=== PATIENT | male | born 1945 | race Caucasian/White ===

== ENCOUNTER 2017-06-21 12:24 | Inpatient (IN) ==
[2017-06-21] MEDS ORDERED: ASPIRIN 325 MG TABLET PO STA (13:08)
[2017-06-21] MEDS ORDERED: ONDANSETRON 4 MG/2 ML VIAL IV STA (13:08)
[2017-06-21] MEDS ORDERED: FUROSEMIDE 100 MG/10 ML VIAL IV STA (13:08)
[2017-06-21] MEDS ORDERED: ALBUTEROL 2.5 MG/3 ML NEB RESP TX SCH (13:30)
[2017-06-21] MEDS ORDERED: FUROSEMIDE 20 MG/2 ML VIAL ONE (13:31)
[2017-06-21] MEDS ORDERED: FUROSEMIDE 40 MG/4 ML VIAL ONE (13:31)
[2017-06-21] MEDS ORDERED: ONDANSETRON 4 MG/2 ML VIAL ONE (13:31)
[2017-06-21] MEDS ORDERED: ASPIRIN CHEW 81 MG TABLET PO ONE (13:31)
[2017-06-21 13:32] LABS: Basophils % 0.3 % (0.0-0.8); Eosinophils # 0.4 10*3/uL (0.0-0.87); Eosinophils % 3.8 % (0.00-10.9); Hematocrit 36.8 VOL% (42.0-52.0); Hemoglobin 12.5 GM/DL (14.0-18.0); Immature Granulocytes Absolute 0.11 #; Lymphocytes % 9.3 % (21.2-54.2); Mean Corpuscular Hemoglobin 30 PG (27-34); Mean Platelet Volume 10.3 FL (9.6-12.0); Monocytes # 0.8 10*3/uL (0.11-0.8); Monocytes % 7.5 % (1.7-12.7); Neutrophils # 8.2 10*3/uL (1.4-7.4); Neutrophils % 78.1 % (38.7-73.9); Platelet Count 235 T/CUMM (130-400); Red Blood Count 4.23 MC/CUMM (3.8-5.5); Red Cell Distribution Width 14.7 % (9.3-17.3); White Blood Count 10.6 T/CUMM (4-12)
[2017-06-21 13:40] LABS: PT Patient Result 10.2 SECS
[2017-06-21 13:57] LABS: Albumin 3.6 G/DL (3.4-5.0); Bilirubin,Total 0.8 MG/DL (0.2-1.0); Calcium 8.4 MG/DL (8.5-10.1); Magnesium 2.2 MG/DL (1.8-2.4); Osmolality,Calculated 278.8 MOS/KG (273-304); Potassium 3.6 MMOL/L (3.5-5.1); Total Protein 7.1 G/DL (6.4-8.3); Troponin I Only 0.019 NG/ML (0.00-0.045)
[2017-06-21 15:04] LABS: Apearance,Urine CLEAR (Clear); Bilirubin,Urine Negative (Negative); Blood, Urine Negative (Negative); Glucose,Urine (UA) Negative (Negative); Hyaline Casts,Urine 2 /LPF (0-3); Ketones,Urine Negative (Negative); Mucus,Urine Occasional /LPF (Occasional); Nitrite,Urine Negative (Negative); Protein,Urine Negative; RBC,Urine 1 /HPF (0-4); Urine Color Straw (Yellow); Urine Specific Gravity 1.005 (1.001-1.035); Urine Urobilinogen < 2.0 EU/DL (0.2-1.0); WBC,Urine <1 /HPF (0-6)
[2017-06-21] MEDS ORDERED: LACTULOSE 20 GM/30 ML UDCUP PO PRN (15:38)
[2017-06-21] MEDS ORDERED: ACETAMINOPHEN 325 MG TABLET PO PRN (15:38)
[2017-06-21] MEDS ORDERED: ONDANSETRON 4 MG/2 ML VIAL IV PRN (15:38)
[2017-06-21] MEDS: FUROSEMIDE 40 MG/4 ML VIAL IV SCH ×2 (18:53→19:08)
[2017-06-21] MEDS: ENOXAPARIN 30 MG/0.3 ML SYRINGE SUBCUT SCH (18:59)
[2017-06-21] MEDS: POTASSIUM CHLORIDE 20 MEQ TABLET PO SCH (22:08)
[2017-06-21] MEDS: INSULIN REGULAR 100 UNIT/ML SUBCUT SCH (22:08)
[2017-06-21] MEDS: ATORVASTATIN 40 MG TABLET PO SCH (22:08)
[2017-06-21] MEDS: CEFTAROLINE 600 MG in SODIUM CHLORIDE 0.9% 50 ML IV SCH (23:42)
[2017-06-22 05:59] LABS: Basophils % 0.3 % (0.0-0.8); Eosinophils # 0.5 10*3/uL (0.0-0.87); Eosinophils % 4.9 % (0.00-10.9); Hematocrit 34.6 VOL% (42.0-52.0); Hemoglobin 11.7 GM/DL (14.0-18.0); Immature Granulocytes % 1.2 %; Immature Granulocytes Absolute 0.12 #; Lymphocytes # 1.3 10*3/uL (1.4-4.0); Lymphocytes % 12.5 % (21.2-54.2); Mean Corpuscular HGB Conc 33.8 GM/DL (32-36); Mean Corpuscular Hemoglobin 29 PG (27-34); Mean Corpuscular Volume 86.9 FL (87-102); Mean Platelet Volume 10.8 FL (9.6-12.0); Monocytes # 0.9 10*3/uL (0.11-0.8); Monocytes % 8.8 % (1.7-12.7); Neutrophils # 7.5 10*3/uL (1.4-7.4); Neutrophils % 72.3 % (38.7-73.9); Platelet Count 238 T/CUMM (130-400); Red Blood Count 3.98 MC/CUMM (3.8-5.5); Red Cell Distribution Width 14.6 % (9.3-17.3); White Blood Count 10.3 T/CUMM (4-12)
[2017-06-22 06:35] LABS: Albumin 3.4 G/DL (3.4-5.0); Bilirubin,Total 1.1 MG/DL (0.2-1.0); Calcium 8.7 MG/DL (8.5-10.1); Magnesium 2.4 MG/DL (1.8-2.4); Osmolality,Calculated 281.7 MOS/KG (273-304); Potassium 3.6 MMOL/L (3.5-5.1); Total Protein 6.9 G/DL (6.4-8.3)
[2017-06-22 06:58] LABS: Risk Ratio 2.5; VLDL CHOLESTEROL 11.4 MG/DL
[2017-06-22] MEDS: LISINOPRIL 2.5 MG TABLET PO SCH (08:52)
[2017-06-22] MEDS: ASCORBIC ACID 500 MG TABLET PO SCH (08:52)
[2017-06-22] MEDS: POTASSIUM CHLORIDE 20 MEQ TABLET PO SCH ×2 (08:52→23:13)
[2017-06-22] MEDS: ASPIRIN EC 81 MG TABLET PO SCH (08:52)
[2017-06-22] MEDS: PANTOPRAZOLE 40 MG TABLET PO SCH (08:53)
[2017-06-22] MEDS: CHLORTHALIDONE 25 MG TABLET PO SCH (08:53)
[2017-06-22] MEDS: FUROSEMIDE 40 MG/4 ML VIAL IV SCH ×2 (08:55→16:53)
[2017-06-22] MEDS: INSULIN REGULAR 100 UNIT/ML SUBCUT SCH ×5 (09:01→23:37)
[2017-06-22] MEDS: CEFTAROLINE 600 MG in SODIUM CHLORIDE 0.9% 50 ML IV SCH ×2 (09:26→23:21)
[2017-06-22] MEDS: MULTIVITAMIN (OCUVITE) TABLET PO SCH ×2 (11:19→23:13)
[2017-06-22] MEDS: ENOXAPARIN 30 MG/0.3 ML SYRINGE SUBCUT SCH (16:57)
[2017-06-22] MEDS: ATORVASTATIN 40 MG TABLET PO SCH (23:12)
[2017-06-22] MEDS: DOCUSATE SODIUM 100 MG CAPSULE PO SCH (23:12)
[2017-06-22] MEDS: rOPINIRole 1 MG TABLET PO SCH (23:13)
[2017-06-22] MEDS: SERTRALINE 100 MG TABLET PO SCH (23:13)
[2017-06-23] MEDS ORDERED: FAMOTIDINE 20 MG TABLET PO ONE (05:24)
[2017-06-23 07:52] LABS: Basophils % 0.3 % (0.0-0.8); Eosinophils # 0.6 10*3/uL (0.0-0.87); Eosinophils % 5.7 % (0.00-10.9); Hematocrit 36.3 VOL% (42.0-52.0); Hemoglobin 12.2 GM/DL (14.0-18.0); Immature Granulocytes % 1.2 %; Immature Granulocytes Absolute 0.12 #; Lymphocytes % 9.7 % (21.2-54.2); Mean Corpuscular HGB Conc 33.6 GM/DL (32-36); Mean Corpuscular Hemoglobin 29 PG (27-34); Mean Corpuscular Volume 86.8 FL (87-102); Mean Platelet Volume 10.2 FL (9.6-12.0); Monocytes # 0.9 10*3/uL (0.11-0.8); Monocytes % 8.8 % (1.7-12.7); Neutrophils # 7.3 10*3/uL (1.4-7.4); Neutrophils % 74.3 % (38.7-73.9); Platelet Count 251 T/CUMM (130-400); Red Blood Count 4.18 MC/CUMM (3.8-5.5); Red Cell Distribution Width 14.7 % (9.3-17.3); White Blood Count 9.9 T/CUMM (4-12)
[2017-06-23 08:20] LABS: Calcium 8.4 MG/DL (8.5-10.1); Magnesium 2.5 MG/DL (1.8-2.4); Osmolality,Calculated 279.8 MOS/KG (273-304); Potassium 3.3 MMOL/L (3.5-5.1)
[2017-06-23] MEDS: CEFTAROLINE 600 MG in SODIUM CHLORIDE 0.9% 50 ML IV SCH ×2 (08:33→22:08)
[2017-06-23] MEDS ORDERED: POTASSIUM CHLORIDE 20 MEQ TABLET PO ONE (09:14)
[2017-06-23] MEDS ORDERED: MAGNESIUM HYDROXIDE SUSP 30 ML UDCUP PO PRN (09:14)
[2017-06-23] MEDS: LISINOPRIL 2.5 MG TABLET PO SCH (09:57)
[2017-06-23] MEDS: POTASSIUM CHLORIDE 20 MEQ TABLET PO SCH ×2 (09:58→22:04)
[2017-06-23] MEDS ORDERED: LIDOCAINE 1%/EPI INJ 20 ML VIAL ONE (10:11)
[2017-06-23] MEDS ORDERED: DIBUCAINE 1% OINT 28 GM TUBE TOP ONE (10:11)
[2017-06-23 10:33] LABS: Apearance,Urine CLEAR (Clear); Bilirubin,Urine Negative (Negative); Blood, Urine Negative (Negative); Glucose,Urine (UA) Negative (Negative); Ketones,Urine Negative (Negative); Nitrite,Urine Negative (Negative); Protein,Urine Negative; RBC,Urine 4 /HPF (0-4); Squamous Epithelial Cell,Urine Occasional /HPF (0-10); Urine Color Yellow (Yellow); Urine Specific Gravity 1.015 (1.001-1.035); Urine Urobilinogen < 2.0 EU/DL (0.2-1.0); WBC,Urine 1 /HPF (0-6)
[2017-06-23] MEDS: LACTATED RINGERS 1,000 ML IV SCH (10:34)
[2017-06-23] MEDS ORDERED: MIDAZOLAM 2 MG/2 ML VIAL ONE (11:36)
[2017-06-23] MEDS ORDERED: SEVOFLURANE 1 UNIT/15 MINUTE INH ONE (11:36)
[2017-06-23] MEDS ORDERED: ETOMIDATE 20 MG/10 ML VIAL IV ONE (11:37)
[2017-06-23] MEDS ORDERED: SUCCINYLCHOLINE 200 MG/10 ML VIAL ONE (11:37)
[2017-06-23] MEDS: FUROSEMIDE 40 MG/4 ML VIAL IV SCH ×2 (13:18→17:47)
[2017-06-23] MEDS: CHLORTHALIDONE 25 MG TABLET PO SCH (14:50)
[2017-06-23] MEDS: INSULIN REGULAR 100 UNIT/ML SUBCUT SCH ×3 (14:50→22:06)
[2017-06-23] MEDS: ASCORBIC ACID 500 MG TABLET PO SCH (15:20)
[2017-06-23] MEDS: ASPIRIN EC 81 MG TABLET PO SCH (15:20)
[2017-06-23] MEDS: MULTIVITAMIN (OCUVITE) TABLET PO SCH ×2 (15:20→22:02)
[2017-06-23] MEDS: PANTOPRAZOLE 40 MG TABLET PO SCH (15:22)
[2017-06-23] MEDS: ENOXAPARIN 30 MG/0.3 ML SYRINGE SUBCUT SCH (16:07)
[2017-06-23] MEDS: SPIRONOLACTONE 25 MG TABLET PO SCH (17:47)
[2017-06-23] MEDS: rOPINIRole 1 MG TABLET PO SCH (22:02)
[2017-06-23] MEDS: DOCUSATE SODIUM 100 MG CAPSULE PO SCH (22:02)
[2017-06-23] MEDS: SERTRALINE 100 MG TABLET PO SCH (22:03)
[2017-06-23] MEDS: metOLazone 2.5 MG TABLET PO PRN (22:06)
[2017-06-23] MEDS: ATORVASTATIN 40 MG TABLET PO SCH (22:07)
[2017-06-24 03:46] LABS: Basophils % 0.3 % (0.0-0.8); Eosinophils # 0.4 10*3/uL (0.0-0.87); Eosinophils % 3.1 % (0.00-10.9); Hematocrit 37.5 VOL% (42.0-52.0); Hemoglobin 12.5 GM/DL (14.0-18.0); Immature Granulocytes Absolute 0.14 #; Lymphocytes # 1.1 10*3/uL (1.4-4.0); Lymphocytes % 7.7 % (21.2-54.2); Mean Corpuscular HGB Conc 33.3 GM/DL (32-36); Mean Corpuscular Hemoglobin 29 PG (27-34); Mean Corpuscular Volume 86.6 FL (87-102); Mean Platelet Volume 10.2 FL (9.6-12.0); Monocytes # 1.1 10*3/uL (0.11-0.8); Monocytes % 8.2 % (1.7-12.7); Neutrophils % 79.7 % (38.7-73.9); Platelet Count 255 T/CUMM (130-400); Red Blood Count 4.33 MC/CUMM (3.8-5.5); Red Cell Distribution Width 14.6 % (9.3-17.3); White Blood Count 13.9 T/CUMM (4-12)
[2017-06-24 04:09] LABS: Magnesium 2.5 MG/DL (1.8-2.4); Osmolality,Calculated 281.7 MOS/KG (273-304); Potassium 3.5 MMOL/L (3.5-5.1)
[2017-06-24] MEDS: FUROSEMIDE 40 MG/4 ML VIAL IV SCH ×2 (07:33→16:35)
[2017-06-24] MEDS: CEFTAROLINE 600 MG in SODIUM CHLORIDE 0.9% 50 ML IV SCH ×2 (07:35→21:26)
[2017-06-24] MEDS: SPIRONOLACTONE 25 MG TABLET PO SCH (08:52)
[2017-06-24] MEDS: ASPIRIN EC 81 MG TABLET PO SCH (08:52)
[2017-06-24] MEDS: ASCORBIC ACID 500 MG TABLET PO SCH (08:52)
[2017-06-24] MEDS: PANTOPRAZOLE 40 MG TABLET PO SCH (08:52)
[2017-06-24] MEDS: MULTIVITAMIN (OCUVITE) TABLET PO SCH ×2 (08:52→21:32)
[2017-06-24] MEDS: LISINOPRIL 2.5 MG TABLET PO SCH (08:52)
[2017-06-24] MEDS: INSULIN REGULAR 100 UNIT/ML SUBCUT SCH ×4 (08:53→21:31)
[2017-06-24] MEDS: POTASSIUM CHLORIDE 20 MEQ TABLET PO SCH ×2 (08:54→21:34)
[2017-06-24] MEDS: SULFAMETHOX/TRIMETHOPRIM 800-160 MG TABLET PO SCH ×2 (12:06→21:34)
[2017-06-24] MEDS: LACTATED RINGERS 1,000 ML IV SCH (14:58)
[2017-06-24] MEDS ORDERED: methylPREDNISolone SOD SUC 40 MG/1 ML VIAL IV ONE (15:25)
[2017-06-24] MEDS: ENOXAPARIN 30 MG/0.3 ML SYRINGE SUBCUT SCH (16:35)
[2017-06-24] MEDS: rOPINIRole 1 MG TABLET PO SCH (21:32)
[2017-06-24] MEDS: metOLazone 2.5 MG TABLET PO PRN (21:33)
[2017-06-24] MEDS: DOCUSATE SODIUM 100 MG CAPSULE PO SCH (21:34)
[2017-06-24] MEDS: ATORVASTATIN 40 MG TABLET PO SCH (21:34)
[2017-06-24] MEDS: SERTRALINE 100 MG TABLET PO SCH (21:34)
[2017-06-25] MEDS: INSULIN REGULAR 100 UNIT/ML SUBCUT SCH ×2 (07:22→11:35)
[2017-06-25] MEDS ORDERED: methylPREDNISolone SOD SUC 40 MG/1 ML VIAL IV SCH (09:00)
[2017-06-25] MEDS: SPIRONOLACTONE 25 MG TABLET PO SCH (10:05)
[2017-06-25] MEDS: MULTIVITAMIN (OCUVITE) TABLET PO SCH (10:05)
[2017-06-25] MEDS: POTASSIUM CHLORIDE 20 MEQ TABLET PO SCH (10:05)
[2017-06-25] MEDS: PANTOPRAZOLE 40 MG TABLET PO SCH (10:05)
[2017-06-25] MEDS: ASCORBIC ACID 500 MG TABLET PO SCH (10:05)
[2017-06-25] MEDS: LISINOPRIL 2.5 MG TABLET PO SCH (10:05)
[2017-06-25] MEDS: ASPIRIN EC 81 MG TABLET PO SCH (10:05)
[2017-06-25] MEDS: SULFAMETHOX/TRIMETHOPRIM 800-160 MG TABLET PO SCH (10:06)
[2017-06-25] MEDS: FUROSEMIDE 40 MG/4 ML VIAL IV SCH (10:06)
[2017-06-25] MEDS: CEFTAROLINE 600 MG in SODIUM CHLORIDE 0.9% 50 ML IV SCH (10:06)
[2017-06-25 11:46] VITALS: BP 130/63
== END 2017-06-25 12:00 | disposition home or self-care (01) | DRG 982 ==
LOC: N.ED 12:24 → N.EDINP 15:12 → SUATTDRO 15:12 → N.TELES 18:10
PROVIDERS: ADMIT Internal Medicine; ATTEND Hospitalist

== ENCOUNTER 2017-08-09 13:34 | Inpatient (IN) ==
[2017-08-09] MEDS ORDERED: FUROSEMIDE 100 MG/10 ML VIAL IV STA (14:19)
[2017-08-09] MEDS ORDERED: LEVOFLOXACIN 500 MG TABLET PO STA (14:19)
[2017-08-09] MEDS ORDERED: FUROSEMIDE 100 MG/10 ML VIAL ONE (14:44)
[2017-08-09] MEDS ORDERED: LEVOFLOXACIN 500 MG TABLET ONE (14:44)
[2017-08-09 15:19] LABS: Basophils % 0.1 % (0.0-0.8); Eosinophils % 0.1 % (0.00-10.9); Hematocrit 34.8 VOL% (42.0-52.0); Immature Granulocytes % 0.9 %; Immature Granulocytes Absolute 0.14 #; Lymphocytes # 0.4 10*3/uL (1.4-4.0); Lymphocytes % 2.3 % (21.2-54.2); Mean Corpuscular HGB Conc 34.5 GM/DL (32-36); Mean Corpuscular Hemoglobin 30 PG (27-34); Mean Corpuscular Volume 85.7 FL (87-102); Mean Platelet Volume 10.4 FL (9.6-12.0); Monocytes # 0.9 10*3/uL (0.11-0.8); Monocytes % 5.9 % (1.7-12.7); Neutrophils # 14.4 10*3/uL (1.4-7.4); Neutrophils % 90.7 % (38.7-73.9); Platelet Count 248 T/CUMM (130-400); Red Blood Count 4.06 MC/CUMM (3.8-5.5); Red Cell Distribution Width 15.6 % (9.3-17.3); White Blood Count 15.9 T/CUMM (4-12)
[2017-08-09 15:36] LABS: Albumin 3.1 G/DL (3.4-5.0); Bilirubin,Total 1.2 MG/DL (0.2-1.0); Calcium 8.5 MG/DL (8.5-10.1); Magnesium 2.1 MG/DL (1.8-2.4); Osmolality,Calculated 279.1 MOS/KG (273-304); Potassium 4.3 MMOL/L (3.5-5.1); Total Protein 6.9 G/DL (6.4-8.3)
[2017-08-09 15:37] LABS: Troponin I Only 0.072 NG/ML (0.00-0.045)
[2017-08-09] MEDS ORDERED: POTASSIUM CHLORIDE 20 MEQ TABLET PO PRN (16:30)
[2017-08-09] MEDS ORDERED: MAGNESIUM SULF RIDER 2 GM in PREMIX 1 EACH IV PRN (16:30)
[2017-08-09] MEDS ORDERED: DEXTROSE 50% 25 GM/50 ML VIAL IV PRN (16:30)
[2017-08-09] MEDS ORDERED: ONDANSETRON 4 MG/2 ML VIAL IV PRN (16:30)
[2017-08-09] MEDS ORDERED: ACETAMINOPHEN 325 MG TABLET PO PRN (16:30)
[2017-08-09] MEDS ORDERED: GLUCAGON 1 MG VIAL IM PRN (16:30)
[2017-08-09 18:45] LABS: Apearance,Urine CLEAR (Clear); Bacteria,Urine Occasional /HPF (Few); Bilirubin,Urine Negative (Negative); Blood, Urine Negative (Negative); Glucose,Urine (UA) Negative (Negative); Hyaline Casts,Urine 1 /LPF (0-3); Ketones,Urine Negative (Negative); Mucus,Urine Occasional /LPF (Occasional); Nitrite,Urine Negative (Negative); Protein,Urine Negative; RBC,Urine 3 /HPF (0-4); Squamous Epithelial Cell,Urine Occasional /HPF (0-10); Urine Color Yellow (Yellow); Urine Specific Gravity 1.006 (1.001-1.035); WBC,Urine 2 /HPF (0-6)
[2017-08-09] MEDS ORDERED: ENOXAPARIN 40 MG/0.4 ML SYRINGE SUBCUT SCH (21:00)
[2017-08-09] MEDS: metOLazone 2.5 MG TABLET PO SCH (21:20)
[2017-08-09] MEDS: DOCUSATE SODIUM 100 MG CAPSULE PO SCH (21:20)
[2017-08-09] MEDS: INSULIN REGULAR 100 UNIT/ML SUBCUT SCH (21:20)
[2017-08-09] MEDS: metFORMIN 850 MG TABLET PO SCH (21:54)
[2017-08-09] MEDS: SERTRALINE 100 MG TABLET PO SCH (21:54)
[2017-08-09] MEDS: rOPINIRole 4 MG TABLET PO SCH (21:54)
[2017-08-09] MEDS: TERAZOSIN 5 MG CAPSULE PO SCH (21:55)
[2017-08-09] MEDS: POTASSIUM CHLORIDE 20 MEQ TABLET PO SCH (21:55)
[2017-08-09] MEDS: ATORVASTATIN 40 MG TABLET PO SCH (21:55)
[2017-08-10] MEDS: IPRATROPIUM 500 MCG/2.5 ML NEB RESP TX SCH ×4 (00:08→20:32)
[2017-08-10 01:41] LABS: Basophils % 0.1 % (0.0-0.8); Eosinophils # 0.1 10*3/uL (0.0-0.87); Eosinophils % 0.4 % (0.00-10.9); Hematocrit 31.5 VOL% (42.0-52.0); Hemoglobin 10.4 GM/DL (14.0-18.0); Immature Granulocytes % 1.1 %; Immature Granulocytes Absolute 0.15 #; Lymphocytes # 0.7 10*3/uL (1.4-4.0); Lymphocytes % 4.9 % (21.2-54.2); Mean Corpuscular Hemoglobin 29 PG (27-34); Mean Corpuscular Volume 86.5 FL (87-102); Mean Platelet Volume 9.9 FL (9.6-12.0); Monocytes % 7.4 % (1.7-12.7); Neutrophils # 12.2 10*3/uL (1.4-7.4); Neutrophils % 86.1 % (38.7-73.9); Platelet Count 258 T/CUMM (130-400); Red Blood Count 3.64 MC/CUMM (3.8-5.5); Red Cell Distribution Width 15.6 % (9.3-17.3); White Blood Count 14.1 T/CUMM (4-12)
[2017-08-10 02:27] LABS: Calcium 8.3 MG/DL (8.5-10.1); Magnesium 2.2 MG/DL (1.8-2.4); Osmolality,Calculated 281.8 MOS/KG (273-304); Potassium 4.1 MMOL/L (3.5-5.1); Risk Ratio 4.67; Thyroid Stimulating Hormone 0.854 uIU/ml (0.358-3.74); VLDL CHOLESTEROL 20.4 MG/DL
[2017-08-10] MEDS ORDERED: ENOXAPARIN 60 MG/0.6 ML SYRINGE SUBCUT ONE (02:33)
[2017-08-10 03:19] LABS: Platelet Estimate Normal
[2017-08-10] MEDS: INSULIN REGULAR 100 UNIT/ML SUBCUT SCH ×4 (08:40→21:00)
[2017-08-10] MEDS: ASPIRIN EC 81 MG TABLET PO SCH (09:35)
[2017-08-10] MEDS: POTASSIUM CHLORIDE 20 MEQ TABLET PO SCH ×2 (09:35→21:37)
[2017-08-10] MEDS: metFORMIN 850 MG TABLET PO SCH (09:35)
[2017-08-10] MEDS: FERROUS SULFATE 325 MG TABLET PO SCH (09:35)
[2017-08-10] MEDS: DOCUSATE SODIUM 100 MG CAPSULE PO SCH ×2 (09:35→21:36)
[2017-08-10] MEDS: ASCORBIC ACID 500 MG TABLET PO SCH (09:35)
[2017-08-10] MEDS: LISINOPRIL 2.5 MG TABLET PO SCH ×2 (09:35→09:39)
[2017-08-10] MEDS: MULTIVITAMIN (OCUVITE) TABLET PO SCH (09:35)
[2017-08-10] MEDS: FUROSEMIDE 80 MG TABLET PO SCH (09:36)
[2017-08-10] MEDS: SPIRONOLACTONE 25 MG TABLET PO SCH (09:36)
[2017-08-10] MEDS: FUROSEMIDE 40 MG TABLET PO SCH (14:25)
[2017-08-10] MEDS: ENOXAPARIN 100 MG/ML SYRINGE SUBCUT SCH (16:23)
[2017-08-10] MEDS: LEVOFLOXACIN INJ 500 MG in PREMIX 1 EACH IV SCH (16:23)
[2017-08-10] MEDS ORDERED: POTASSIUM CHLORIDE RIDER 10 MEQ in PREMIX 1 EACH IV PRN (17:18)
[2017-08-10] MEDS ORDERED: diphenhydrAMINE CAP 25 MG CAPSULE PO ONE (17:18)
[2017-08-10] MEDS ORDERED: MAGNESIUM SULF RIDER 2 GM in PREMIX 1 EACH IV PRN (17:18)
[2017-08-10] MEDS ORDERED: DIAZEPAM 5 MG TABLET PO ONE (17:18)
[2017-08-10] MEDS ORDERED: GLUCAGON 1 MG VIAL IM PRN (17:20)
[2017-08-10] MEDS ORDERED: DEXTROSE 50% 25 GM/50 ML VIAL IV PRN (17:20)
[2017-08-10] MEDS ORDERED: FAMOTIDINE 20 MG/2 ML VIAL IV SCH (17:30)
[2017-08-10] MEDS: methylPREDNISolone SOD SUC 125 MG/2 ML VIAL IV SCH (18:30)
[2017-08-10] MEDS: rOPINIRole 4 MG TABLET PO SCH (21:35)
[2017-08-10] MEDS: diphenhydrAMINE CAP 25 MG CAPSULE PO SCH (21:35)
[2017-08-10] MEDS: ATORVASTATIN 40 MG TABLET PO SCH (21:35)
[2017-08-10] MEDS: SERTRALINE 100 MG TABLET PO SCH (21:37)
[2017-08-10] MEDS: TERAZOSIN 5 MG CAPSULE PO SCH (21:37)
[2017-08-10] MEDS ORDERED: LORATADINE 10 MG TABLET PO ONE (23:33)
[2017-08-10] MEDS ORDERED: FAMOTIDINE 20 MG TABLET PO ONE (23:33)
[2017-08-10] MEDS ORDERED: BENZONATATE 100 MG CAPSULE PO ONE (23:36)
[2017-08-11] MEDS: ACETAMINOPHEN 325 MG TABLET PO SCH ×3 (00:44→21:23)
[2017-08-11] MEDS: traMADol 50 MG TABLET PO SCH ×3 (00:44→21:23)
[2017-08-11] MEDS: GABAPENTIN 100 MG CAPSULE PO SCH ×4 (00:45→21:21)
[2017-08-11] MEDS: IPRATROPIUM 500 MCG/2.5 ML NEB RESP TX SCH ×5 (01:06→20:13)
[2017-08-11] MEDS: methylPREDNISolone SOD SUC 125 MG/2 ML VIAL IV SCH ×3 (01:54→18:54)
[2017-08-11] MEDS: ENOXAPARIN 100 MG/ML SYRINGE SUBCUT SCH (03:00)
[2017-08-11 06:28] LABS: Basophils % 0.1 % (0.0-0.8); Hematocrit 33.5 VOL% (42.0-52.0); Hemoglobin 11.2 GM/DL (14.0-18.0); Immature Granulocytes % 1.9 %; Immature Granulocytes Absolute 0.16 #; Lymphocytes # 0.5 10*3/uL (1.4-4.0); Mean Corpuscular HGB Conc 33.4 GM/DL (32-36); Mean Corpuscular Hemoglobin 28 PG (27-34); Monocytes # 0.1 10*3/uL (0.11-0.8); Monocytes % 1.2 % (1.7-12.7); Neutrophils # 7.5 10*3/uL (1.4-7.4); Neutrophils % 90.8 % (38.7-73.9); Platelet Count 305 T/CUMM (130-400); Red Blood Count 3.94 MC/CUMM (3.8-5.5); Red Cell Distribution Width 15.6 % (9.3-17.3); White Blood Count 8.2 T/CUMM (4-12)
[2017-08-11 06:51] LABS: Band Neutrophils 2 % (0-10); Giant Platelets Few; Hypochromasia 1+; Lymphocytes 5 % (20-55); Ovalocytes Slight; Platelet Estimate Adequate; Segmented Neutrophils 91 % (50-85); Total Cells Counted 100
[2017-08-11 07:01] LABS: Calcium 8.6 MG/DL (8.5-10.1); Magnesium 2.5 MG/DL (1.8-2.4); Osmolality,Calculated 288.8 MOS/KG (273-304); Potassium 4.5 MMOL/L (3.5-5.1)
[2017-08-11] MEDS ORDERED: SODIUM CHLORIDE 0.45% 1,000 ML IV SCH (08:00)
[2017-08-11] MEDS: INSULIN REGULAR 100 UNIT/ML SUBCUT SCH ×4 (09:26→21:25)
[2017-08-11] MEDS: SPIRONOLACTONE 25 MG TABLET PO SCH (09:26)
[2017-08-11] MEDS: diphenhydrAMINE CAP 25 MG CAPSULE PO SCH ×2 (09:26→21:23)
[2017-08-11] MEDS: POTASSIUM CHLORIDE 20 MEQ TABLET PO SCH ×2 (09:27→21:22)
[2017-08-11] MEDS: LORATADINE 10 MG TABLET PO SCH (09:27)
[2017-08-11] MEDS: FERROUS SULFATE 325 MG TABLET PO SCH (09:27)
[2017-08-11] MEDS: BENZONATATE 100 MG CAPSULE PO SCH ×2 (09:27→21:23)
[2017-08-11] MEDS: DOCUSATE SODIUM 100 MG CAPSULE PO SCH ×2 (09:27→21:22)
[2017-08-11] MEDS: MULTIVITAMIN (OCUVITE) TABLET PO SCH (09:27)
[2017-08-11] MEDS: ASCORBIC ACID 500 MG TABLET PO SCH (09:28)
[2017-08-11] MEDS: metOLazone 2.5 MG TABLET PO SCH (09:28)
[2017-08-11 09:40] LABS: Basophils % 0.2 % (0.0-0.8); Hematocrit 33.4 VOL% (42.0-52.0); Hemoglobin 11.3 GM/DL (14.0-18.0); Immature Granulocytes Absolute 0.17 #; Lymphocytes # 0.6 10*3/uL (1.4-4.0); Lymphocytes % 6.5 % (21.2-54.2); Mean Corpuscular HGB Conc 33.8 GM/DL (32-36); Mean Corpuscular Hemoglobin 29 PG (27-34); Mean Corpuscular Volume 85.4 FL (87-102); Mean Platelet Volume 10.2 FL (9.6-12.0); Monocytes # 0.2 10*3/uL (0.11-0.8); Monocytes % 1.8 % (1.7-12.7); Neutrophils # 7.7 10*3/uL (1.4-7.4); Neutrophils % 89.5 % (38.7-73.9); Platelet Count 290 T/CUMM (130-400); Red Blood Count 3.91 MC/CUMM (3.8-5.5); Red Cell Distribution Width 15.7 % (9.3-17.3); White Blood Count 8.6 T/CUMM (4-12)
[2017-08-11 10:07] LABS: Calcium 8.6 MG/DL (8.5-10.1); Magnesium 2.5 MG/DL (1.8-2.4); Osmolality,Calculated 289.8 MOS/KG (273-304); Potassium 4.8 MMOL/L (3.5-5.1)
[2017-08-11] MEDS: ASPIRIN EC 81 MG TABLET PO SCH (11:11)
[2017-08-11] MEDS: LISINOPRIL 2.5 MG TABLET PO SCH (11:11)
[2017-08-11] MEDS: FAMOTIDINE 20 MG TABLET PO SCH ×2 (11:11→21:23)
[2017-08-11] MEDS ORDERED: MEPERIDINE 25 MG/1 ML VIAL ONE (11:29)
[2017-08-11] MEDS ORDERED: LIDOCAINE 1% 20 ML VIAL ONE (11:29)
[2017-08-11] MEDS ORDERED: MIDAZOLAM 2 MG/2 ML VIAL ONE (11:30)
[2017-08-11] MEDS ORDERED: DIAZEPAM 5 MG TABLET PO ONE (11:30)
[2017-08-11] MEDS ORDERED: diphenhydrAMINE CAP 25 MG CAPSULE PO ONE (11:30)
[2017-08-11] MEDS ORDERED: ACETAMINOPHEN/CODEINE 300-30 MG TABLET PO PRN (12:38)
[2017-08-11] MEDS: FUROSEMIDE 40 MG TABLET PO SCH (15:14)
[2017-08-11] MEDS: LEVOFLOXACIN INJ 500 MG in PREMIX 1 EACH IV SCH (15:15)
[2017-08-11] MEDS: rOPINIRole 4 MG TABLET PO SCH (21:21)
[2017-08-11] MEDS: SERTRALINE 100 MG TABLET PO SCH (21:21)
[2017-08-11] MEDS: TERAZOSIN 5 MG CAPSULE PO SCH (21:22)
[2017-08-11] MEDS: ATORVASTATIN 40 MG TABLET PO SCH (21:23)
[2017-08-12] MEDS: IPRATROPIUM 500 MCG/2.5 ML NEB RESP TX SCH ×3 (00:22→13:58)
[2017-08-12] MEDS: methylPREDNISolone SOD SUC 125 MG/2 ML VIAL IV SCH ×3 (02:27→16:59)
[2017-08-12 05:51] LABS: Basophils % 0.2 % (0.0-0.8); Hematocrit 30.3 VOL% (42.0-52.0); Hemoglobin 10.2 GM/DL (14.0-18.0); Immature Granulocytes % 3.2 %; Immature Granulocytes Absolute 0.56 #; Lymphocytes # 0.6 10*3/uL (1.4-4.0); Lymphocytes % 3.3 % (21.2-54.2); Mean Corpuscular HGB Conc 33.7 GM/DL (32-36); Mean Corpuscular Hemoglobin 29 PG (27-34); Mean Corpuscular Volume 85.1 FL (87-102); Mean Platelet Volume 10.2 FL (9.6-12.0); Monocytes # 0.4 10*3/uL (0.11-0.8); Monocytes % 2.4 % (1.7-12.7); Neutrophils % 90.9 % (38.7-73.9); Platelet Count 290 T/CUMM (130-400); Red Blood Count 3.56 MC/CUMM (3.8-5.5); Red Cell Distribution Width 15.9 % (9.3-17.3); White Blood Count 17.6 T/CUMM (4-12)
[2017-08-12 06:11] LABS: Osmolality,Calculated 286.2 MOS/KG (273-304); Potassium 4.5 MMOL/L (3.5-5.1)
[2017-08-12 07:27] LABS: Band Neutrophils 1 % (0-10); Hypochromasia 1+; Lymphocytes 2 % (20-55); Microcytosis Slight; Myelocytes 1 %; Ovalocytes Slight; Platelet Estimate Normal; Segmented Neutrophils 92 % (50-85); Total Cells Counted 100
[2017-08-12] MEDS: FUROSEMIDE 80 MG TABLET PO SCH (09:54)
[2017-08-12] MEDS: ASCORBIC ACID 500 MG TABLET PO SCH (09:54)
[2017-08-12] MEDS: SPIRONOLACTONE 25 MG TABLET PO SCH (09:54)
[2017-08-12] MEDS: BENZONATATE 100 MG CAPSULE PO SCH (09:54)
[2017-08-12] MEDS: LORATADINE 10 MG TABLET PO SCH (09:54)
[2017-08-12] MEDS: POTASSIUM CHLORIDE 20 MEQ TABLET PO SCH (09:54)
[2017-08-12] MEDS: MULTIVITAMIN (OCUVITE) TABLET PO SCH (09:54)
[2017-08-12] MEDS: LISINOPRIL 2.5 MG TABLET PO SCH (09:54)
[2017-08-12] MEDS: DOCUSATE SODIUM 100 MG CAPSULE PO SCH (09:54)
[2017-08-12] MEDS: FERROUS SULFATE 325 MG TABLET PO SCH (09:54)
[2017-08-12] MEDS: FAMOTIDINE 20 MG TABLET PO SCH (09:55)
[2017-08-12] MEDS: INSULIN REGULAR 100 UNIT/ML SUBCUT SCH ×3 (09:55→17:09)
[2017-08-12] MEDS: GABAPENTIN 100 MG CAPSULE PO SCH ×2 (09:55→14:00)
[2017-08-12] MEDS: diphenhydrAMINE CAP 25 MG CAPSULE PO SCH (09:55)
[2017-08-12] MEDS: ASPIRIN EC 81 MG TABLET PO SCH (09:55)
[2017-08-12] MEDS: ACETAMINOPHEN 325 MG TABLET PO SCH (09:55)
[2017-08-12] MEDS: traMADol 50 MG TABLET PO SCH (09:55)
[2017-08-12 11:59] VITALS: BP 139/75
[2017-08-12] MEDS: FUROSEMIDE 40 MG TABLET PO SCH (13:58)
[2017-08-12] MEDS: LEVOFLOXACIN INJ 500 MG in PREMIX 1 EACH IV SCH (16:59)
== END 2017-08-12 18:10 | disposition home or self-care (01) | DRG 280 ==
LOC: N.ED 13:34 → N.EDINP 15:56 → N.5E 19:45
PROVIDERS: ADMIT Internal Medicine; ATTEND Internal Medicine
PROC: CLCCHCL (ICD-10-PCS; 2017-08-11 10:15)

== ENCOUNTER 2017-08-13 16:43 | Inpatient (IN) ==
[2017-08-13 17:30] LABS: Basophils # 0.1 10*3/uL (0.0-0.2); Basophils % 0.6 % (0.0-0.8); Eosinophils % 0.1 % (0.00-10.9); Immature Granulocytes % 15.2 %; Immature Granulocytes Absolute 2.61 #; Lymphocytes % 5.5 % (21.2-54.2); Mean Corpuscular HGB Conc 32.4 GM/DL (32-36); Mean Corpuscular Hemoglobin 28 PG (27-34); Mean Corpuscular Volume 87.2 FL (87-102); Mean Platelet Volume 9.8 FL (9.6-12.0); Monocytes # 1.2 10*3/uL (0.11-0.8); Monocytes % 6.9 % (1.7-12.7); NRBC # 0.02 10*3/uL; Neutrophils # 12.3 10*3/uL (1.4-7.4); Neutrophils % 71.7 % (38.7-73.9); Platelet Count 289 T/CUMM (130-400); Red Cell Distribution Width 16.2 % (9.3-17.3); White Blood Count 17.1 T/CUMM (4-12)
[2017-08-13 17:39] LABS: INR 1.1; PT Patient Result 11.6 SECS; Partial Thromboplastin Time 28.8 SECS (0-40)
[2017-08-13 17:46] LABS: Calcium 8.6 MG/DL (8.5-10.1); Magnesium 2.4 MG/DL (1.8-2.4); Potassium 4.2 MMOL/L (3.5-5.1)
[2017-08-13 17:51] LABS: Band Neutrophils 4 % (0-10); Lymphocytes 4 % (20-55); Metamyelocytes 2 %; Myelocytes 2 %; Segmented Neutrophils 78 % (50-85); Total Cells Counted 100
[2017-08-13 17:52] LABS: Elliptocytes Few; Hypochromasia Slight; Platelet Estimate Adequate
[2017-08-13] MEDS ORDERED: FUROSEMIDE 40 MG/4 ML VIAL IV STA (18:55)
[2017-08-13] MEDS ORDERED: FUROSEMIDE 40 MG/4 ML VIAL ONE (18:58)
[2017-08-13] MEDS ORDERED: ENOXAPARIN 30 MG/0.3 ML SYRINGE SUBCUT STA (19:00)
[2017-08-13] MEDS ORDERED: ENOXAPARIN 40 MG/0.4 ML SYRINGE ONE (19:07)
[2017-08-13] MEDS ORDERED: ALBUTEROL 2.5 MG/3 ML NEB RESP TX PRN (19:49)
[2017-08-13] MEDS ORDERED: ACETAMINOPHEN 325 MG TABLET PO PRN (19:49)
[2017-08-13] MEDS ORDERED: MAGNESIUM SULF RIDER 2 GM in PREMIX 1 EACH IV PRN (19:49)
[2017-08-13] MEDS ORDERED: MAGNESIUM SULF RIDER 4 GM in PREMIX 1 EACH IV PRN (19:49)
[2017-08-13] MEDS ORDERED: ONDANSETRON 4 MG/2 ML VIAL IV PRN (19:49)
[2017-08-13] MEDS ORDERED: DEXTROSE 50% 25 GM/50 ML VIAL IV PRN (20:00)
[2017-08-13] MEDS ORDERED: GLUCAGON 1 MG VIAL IM PRN (20:00)
[2017-08-13] MEDS ORDERED: ENOXAPARIN 100 MG/ML SYRINGE SUBCUT ONE (20:23)
[2017-08-13] MEDS: INSULIN REGULAR 100 UNIT/ML SUBCUT SCH (21:35)
[2017-08-13] MEDS: DOCUSATE SODIUM 100 MG CAPSULE PO SCH (21:46)
[2017-08-13] MEDS: ATORVASTATIN 40 MG TABLET PO SCH (21:46)
[2017-08-13] MEDS: POTASSIUM CHLORIDE 20 MEQ TABLET PO SCH (21:46)
[2017-08-13] MEDS: SERTRALINE 100 MG TABLET PO SCH (21:46)
[2017-08-13] MEDS: GABAPENTIN 100 MG CAPSULE PO SCH (21:46)
[2017-08-13] MEDS: TERAZOSIN 10 MG CAPSULE PO SCH (22:09)
[2017-08-13] MEDS: rOPINIRole 4 MG TABLET PO SCH (23:50)
[2017-08-14 03:34] LABS: Basophils # 0.1 10*3/uL (0.0-0.2); Basophils % 0.8 % (0.0-0.8); Eosinophils # 0.1 10*3/uL (0.0-0.87); Eosinophils % 0.5 % (0.00-10.9); Hematocrit 33.8 VOL% (42.0-52.0); Hemoglobin 10.9 GM/DL (14.0-18.0); Immature Granulocytes % 14.3 %; Immature Granulocytes Absolute 1.93 #; Lymphocytes # 1.5 10*3/uL (1.4-4.0); Lymphocytes % 11.3 % (21.2-54.2); Mean Corpuscular HGB Conc 32.2 GM/DL (32-36); Mean Corpuscular Hemoglobin 29 PG (27-34); Mean Corpuscular Volume 88.7 FL (87-102); Mean Platelet Volume 10.2 FL (9.6-12.0); Monocytes # 0.9 10*3/uL (0.11-0.8); Monocytes % 6.4 % (1.7-12.7); NRBC # 0.02 10*3/uL; Neutrophils % 66.7 % (38.7-73.9); Platelet Count 255 T/CUMM (130-400); Red Blood Count 3.81 MC/CUMM (3.8-5.5); Red Cell Distribution Width 16.7 % (9.3-17.3); White Blood Count 13.5 T/CUMM (4-12)
[2017-08-14 03:51] LABS: Albumin 2.8 G/DL (3.4-5.0); Bilirubin,Total 1.6 MG/DL (0.2-1.0); Calcium 8.3 MG/DL (8.5-10.1); Osmolality,Calculated 289.5 MOS/KG (273-304); Potassium 4.5 MMOL/L (3.5-5.1); Total Protein 6.4 G/DL (6.4-8.3)
[2017-08-14 05:45] LABS: Band Neutrophils 2 % (0-10); Lymphocytes 17 % (20-55); Metamyelocytes 1 %; Myelocytes 8 %; Segmented Neutrophils 69 % (50-85); Total Cells Counted 100
[2017-08-14 05:47] LABS: Elliptocytes Few; Platelet Estimate Normal
[2017-08-14] MEDS ORDERED: FUROSEMIDE 40 MG/4 ML VIAL IV SCH (08:00)
[2017-08-14] MEDS: ASCORBIC ACID 500 MG TABLET PO SCH (08:10)
[2017-08-14] MEDS: ASPIRIN EC 81 MG TABLET PO SCH (08:10)
[2017-08-14] MEDS: DOCUSATE SODIUM 100 MG CAPSULE PO SCH ×2 (08:10→20:47)
[2017-08-14] MEDS: LEVOFLOXACIN 500 MG TABLET PO SCH (08:10)
[2017-08-14] MEDS: FERROUS SULFATE 325 MG TABLET PO SCH (08:10)
[2017-08-14] MEDS: SPIRONOLACTONE 25 MG TABLET PO SCH (08:10)
[2017-08-14] MEDS: POTASSIUM CHLORIDE 20 MEQ TABLET PO SCH ×2 (08:10→20:48)
[2017-08-14] MEDS: GABAPENTIN 100 MG CAPSULE PO SCH ×3 (08:11→20:47)
[2017-08-14] MEDS: PANTOPRAZOLE 40 MG TABLET PO SCH (08:11)
[2017-08-14] MEDS: predniSONE 50 MG TABLET PO SCH (08:15)
[2017-08-14] MEDS: FUROSEMIDE 40 MG/4 ML VIAL IV SCH ×2 (08:15→15:39)
[2017-08-14] MEDS: INSULIN REGULAR 100 UNIT/ML SUBCUT SCH ×4 (08:21→20:47)
[2017-08-14] MEDS ORDERED: PANTOPRAZOLE 40 MG TABLET PO SCH (09:00)
[2017-08-14] MEDS ORDERED: LISINOPRIL 2.5 MG TABLET PO SCH (09:00)
[2017-08-14] MEDS ORDERED: NON-FORMULARY MEDICATION (Vit C/Vit E Ac/Lut/Copper/Zinc [Preservision Lutein Softgel] 1 E PO SCH (09:00)
[2017-08-14] MEDS: ENOXAPARIN 40 MG/0.4 ML SYRINGE SUBCUT SCH (17:45)
[2017-08-14] MEDS: metOLazone 2.5 MG TABLET PO SCH (20:47)
[2017-08-14] MEDS: rOPINIRole 4 MG TABLET PO SCH (20:48)
[2017-08-14] MEDS: ATORVASTATIN 40 MG TABLET PO SCH (20:48)
[2017-08-14] MEDS: SERTRALINE 100 MG TABLET PO SCH (20:48)
[2017-08-14] MEDS: TERAZOSIN 10 MG CAPSULE PO SCH (20:48)
[2017-08-15 04:57] LABS: Basophils # 0.2 10*3/uL (0.0-0.2); Basophils % 0.9 % (0.0-0.8); Eosinophils # 0.1 10*3/uL (0.0-0.87); Eosinophils % 0.5 % (0.00-10.9); Hematocrit 34.5 VOL% (42.0-52.0); Hemoglobin 11.1 GM/DL (14.0-18.0); Immature Granulocytes % 14.4 %; Immature Granulocytes Absolute 2.61 #; Lymphocytes # 1.4 10*3/uL (1.4-4.0); Lymphocytes % 7.6 % (21.2-54.2); Mean Corpuscular HGB Conc 32.2 GM/DL (32-36); Mean Corpuscular Hemoglobin 28 PG (27-34); Mean Corpuscular Volume 87.6 FL (87-102); Mean Platelet Volume 10.6 FL (9.6-12.0); Monocytes # 0.8 10*3/uL (0.11-0.8); Monocytes % 4.1 % (1.7-12.7); Neutrophils # 13.2 10*3/uL (1.4-7.4); Neutrophils % 72.5 % (38.7-73.9); Platelet Count 273 T/CUMM (130-400); Red Blood Count 3.94 MC/CUMM (3.8-5.5); Red Cell Distribution Width 16.3 % (9.3-17.3); White Blood Count 18.2 T/CUMM (4-12)
[2017-08-15 05:32] LABS: Osmolality,Calculated 292.3 MOS/KG (273-304); Potassium 4.2 MMOL/L (3.5-5.1)
[2017-08-15 05:37] LABS: Band Neutrophils 6 % (0-10); Eosinophils 3 % (0-10); Giant Platelets Few; Hypochromasia 1+; Lymphocytes 7 % (20-55); Microcytosis Slight; Myelocytes 4 %; Ovalocytes Slight; Platelet Estimate Adequate; Segmented Neutrophils 76 % (50-85); Total Cells Counted 100
[2017-08-15] MEDS: INSULIN REGULAR 100 UNIT/ML SUBCUT SCH ×4 (08:18→20:49)
[2017-08-15] MEDS: FUROSEMIDE 40 MG/4 ML VIAL IV SCH ×2 (09:00→17:15)
[2017-08-15] MEDS: ASPIRIN EC 81 MG TABLET PO SCH (09:02)
[2017-08-15] MEDS: ASCORBIC ACID 500 MG TABLET PO SCH (09:02)
[2017-08-15] MEDS: PANTOPRAZOLE 40 MG TABLET PO SCH (09:02)
[2017-08-15] MEDS: predniSONE 50 MG TABLET PO SCH (09:02)
[2017-08-15] MEDS: SPIRONOLACTONE 25 MG TABLET PO SCH (09:02)
[2017-08-15] MEDS: FERROUS SULFATE 325 MG TABLET PO SCH (09:02)
[2017-08-15] MEDS: LEVOFLOXACIN 500 MG TABLET PO SCH (09:03)
[2017-08-15] MEDS: POTASSIUM CHLORIDE 20 MEQ TABLET PO SCH ×2 (09:04→20:48)
[2017-08-15] MEDS: DOCUSATE SODIUM 100 MG CAPSULE PO SCH ×2 (09:04→20:48)
[2017-08-15] MEDS: GABAPENTIN 100 MG CAPSULE PO SCH ×3 (09:04→20:57)
[2017-08-15] MEDS ORDERED: SKIN HEALING OINT (AQUAPHOR) 50 GM TUBE TOP PRN (10:23)
[2017-08-15] MEDS ORDERED: ZINC OXIDE PASTE 113 GM TUBE TOP PRN (10:23)
[2017-08-15] MEDS: MAGNESIUM HYDROXIDE SUSP 30 ML UDCUP PO PRN (14:07)
[2017-08-15] MEDS: ENOXAPARIN 40 MG/0.4 ML SYRINGE SUBCUT SCH (17:15)
[2017-08-15] MEDS: TERAZOSIN 10 MG CAPSULE PO SCH (20:47)
[2017-08-15] MEDS: SERTRALINE 100 MG TABLET PO SCH (20:47)
[2017-08-15] MEDS: rOPINIRole 4 MG TABLET PO SCH (20:48)
[2017-08-15] MEDS: SACUBITRIL/VALSARTAN 49-51 MG TABLET PO SCH (20:48)
[2017-08-15] MEDS: ATORVASTATIN 40 MG TABLET PO SCH (20:48)
[2017-08-16 05:58] LABS: Calcium 8.2 MG/DL (8.5-10.1); Osmolality,Calculated 287.7 MOS/KG (273-304); Potassium 3.8 MMOL/L (3.5-5.1)
[2017-08-16] MEDS: INSULIN REGULAR 100 UNIT/ML SUBCUT SCH ×4 (08:23→21:55)
[2017-08-16] MEDS ORDERED: predniSONE 10 MG TABLET ONE (08:53)
[2017-08-16] MEDS ORDERED: predniSONE 20 MG TABLET ONE (08:53)
[2017-08-16] MEDS: LEVOFLOXACIN 500 MG TABLET PO SCH (09:41)
[2017-08-16] MEDS: SACUBITRIL/VALSARTAN 49-51 MG TABLET PO SCH ×2 (09:41→21:55)
[2017-08-16] MEDS: FERROUS SULFATE 325 MG TABLET PO SCH (09:41)
[2017-08-16] MEDS: MULTIVITAMIN (OCUVITE) TABLET PO SCH (09:41)
[2017-08-16] MEDS: DOCUSATE SODIUM 100 MG CAPSULE PO SCH ×2 (09:41→21:54)
[2017-08-16] MEDS: POTASSIUM CHLORIDE 20 MEQ TABLET PO SCH ×2 (09:42→21:55)
[2017-08-16] MEDS: predniSONE 50 MG TABLET PO SCH (09:44)
[2017-08-16] MEDS: GABAPENTIN 100 MG CAPSULE PO SCH ×3 (09:44→21:54)
[2017-08-16] MEDS: SPIRONOLACTONE 25 MG TABLET PO SCH (09:45)
[2017-08-16] MEDS: ASPIRIN EC 81 MG TABLET PO SCH (09:45)
[2017-08-16] MEDS: FUROSEMIDE 40 MG/4 ML VIAL IV SCH ×2 (09:45→17:10)
[2017-08-16] MEDS: PANTOPRAZOLE 40 MG TABLET PO SCH (09:46)
[2017-08-16] MEDS: ASCORBIC ACID 500 MG TABLET PO SCH (09:49)
[2017-08-16] MEDS: MAGNESIUM HYDROXIDE SUSP 30 ML UDCUP PO PRN (12:59)
[2017-08-16] MEDS: ENOXAPARIN 40 MG/0.4 ML SYRINGE SUBCUT SCH (18:43)
[2017-08-16] MEDS: ATORVASTATIN 40 MG TABLET PO SCH (21:54)
[2017-08-16] MEDS: metOLazone 2.5 MG TABLET PO SCH (21:54)
[2017-08-16] MEDS: rOPINIRole 4 MG TABLET PO SCH (21:54)
[2017-08-16] MEDS: TERAZOSIN 10 MG CAPSULE PO SCH (21:54)
[2017-08-16] MEDS: SERTRALINE 100 MG TABLET PO SCH (21:55)
[2017-08-17 04:05] LABS: Basophils # 0.2 10*3/uL (0.0-0.2); Basophils % 0.9 % (0.0-0.8); Eosinophils # 0.1 10*3/uL (0.0-0.87); Eosinophils % 0.2 % (0.00-10.9); Hematocrit 38.2 VOL% (42.0-52.0); Hemoglobin 12.2 GM/DL (14.0-18.0); Immature Granulocytes % 11.8 %; Immature Granulocytes Absolute 2.62 #; Lymphocytes # 1.3 10*3/uL (1.4-4.0); Lymphocytes % 5.9 % (21.2-54.2); Mean Corpuscular HGB Conc 31.9 GM/DL (32-36); Mean Corpuscular Hemoglobin 28 PG (27-34); Mean Corpuscular Volume 86.8 FL (87-102); Mean Platelet Volume 9.9 FL (9.6-12.0); Monocytes # 0.8 10*3/uL (0.11-0.8); Monocytes % 3.7 % (1.7-12.7); Neutrophils # 17.2 10*3/uL (1.4-7.4); Neutrophils % 77.5 % (38.7-73.9); Platelet Count 343 T/CUMM (130-400); Red Cell Distribution Width 16.2 % (9.3-17.3); White Blood Count 22.2 T/CUMM (4-12)
[2017-08-17 04:44] LABS: Calcium 8.4 MG/DL (8.5-10.1); Osmolality,Calculated 289.1 MOS/KG (273-304); Potassium 4.3 MMOL/L (3.5-5.1)
[2017-08-17 05:34] LABS: Lymphocytes 6 % (20-55); Metamyelocytes 2 %; Myelocytes 3 %; Segmented Neutrophils 85 % (50-85); Total Cells Counted 100
[2017-08-17 05:35] LABS: Hypochromasia 1+; Microcytosis 1+
[2017-08-17 05:36] LABS: Platelet Estimate Normal
[2017-08-17] MEDS: POTASSIUM CHLORIDE 20 MEQ TABLET PO SCH ×2 (08:43→22:23)
[2017-08-17] MEDS: ASCORBIC ACID 500 MG TABLET PO SCH (08:43)
[2017-08-17] MEDS: FERROUS SULFATE 325 MG TABLET PO SCH (08:43)
[2017-08-17] MEDS: ASPIRIN EC 81 MG TABLET PO SCH (08:44)
[2017-08-17] MEDS: LEVOFLOXACIN 500 MG TABLET PO SCH (08:44)
[2017-08-17] MEDS: DOCUSATE SODIUM 100 MG CAPSULE PO SCH ×2 (08:44→22:20)
[2017-08-17] MEDS: SPIRONOLACTONE 25 MG TABLET PO SCH (08:44)
[2017-08-17] MEDS: SACUBITRIL/VALSARTAN 49-51 MG TABLET PO SCH ×2 (08:44→22:28)
[2017-08-17] MEDS: PANTOPRAZOLE 40 MG TABLET PO SCH (08:44)
[2017-08-17] MEDS: GABAPENTIN 100 MG CAPSULE PO SCH ×3 (08:44→22:23)
[2017-08-17] MEDS: INSULIN REGULAR 100 UNIT/ML SUBCUT SCH ×4 (08:45→22:21)
[2017-08-17] MEDS: MULTIVITAMIN (OCUVITE) TABLET PO SCH (08:45)
[2017-08-17] MEDS ORDERED: FUROSEMIDE 40 MG/4 ML VIAL IV SCH (09:00)
[2017-08-17] MEDS: ENOXAPARIN 40 MG/0.4 ML SYRINGE SUBCUT SCH (19:00)
[2017-08-17] MEDS: SERTRALINE 100 MG TABLET PO SCH (22:22)
[2017-08-17] MEDS: rOPINIRole 4 MG TABLET PO SCH (22:23)
[2017-08-17] MEDS: TERAZOSIN 10 MG CAPSULE PO SCH (22:27)
[2017-08-17] MEDS: ATORVASTATIN 40 MG TABLET PO SCH (22:27)
[2017-08-18 05:39] LABS: Basophils % 0.2 % (0.0-0.8); Eosinophils # 0.6 10*3/uL (0.0-0.87); Hematocrit 40.3 VOL% (42.0-52.0); Hemoglobin 13.2 GM/DL (14.0-18.0); Immature Granulocytes % 18.6 %; Lymphocytes # 2.2 10*3/uL (1.4-4.0); Lymphocytes % 11.4 % (21.2-54.2); Mean Corpuscular HGB Conc 32.8 GM/DL (32-36); Mean Corpuscular Hemoglobin 28 PG (27-34); Mean Corpuscular Volume 86.1 FL (87-102); Mean Platelet Volume 9.7 FL (9.6-12.0); Monocytes # 0.9 10*3/uL (0.11-0.8); Monocytes % 4.9 % (1.7-12.7); Neutrophils # 11.6 10*3/uL (1.4-7.4); Neutrophils % 61.9 % (38.7-73.9); Platelet Count 340 T/CUMM (130-400); Red Blood Count 4.68 MC/CUMM (3.8-5.5); Red Cell Distribution Width 16.3 % (9.3-17.3); White Blood Count 18.8 T/CUMM (4-12)
[2017-08-18 06:08] LABS: Hypochromasia 1+
[2017-08-18 06:09] LABS: Platelet Estimate Normal
[2017-08-18 06:23] LABS: Calcium 8.1 MG/DL (8.5-10.1); Potassium 4.4 MMOL/L (3.5-5.1)
[2017-08-18 07:13] LABS: Band Neutrophils 1 % (0-10); Eosinophils 2 % (0-10); Lymphocytes 16 % (20-55); Metamyelocytes 1 %; Myelocytes 3 %; Nucleated Red Blood Cells 1 (0-5); Segmented Neutrophils 70 % (50-85); Total Cells Counted 100
[2017-08-18] MEDS: INSULIN REGULAR 100 UNIT/ML SUBCUT SCH ×4 (07:38→21:40)
[2017-08-18] MEDS: SACUBITRIL/VALSARTAN 49-51 MG TABLET PO SCH ×2 (09:40→20:58)
[2017-08-18] MEDS: DOCUSATE SODIUM 100 MG CAPSULE PO SCH ×2 (09:41→20:55)
[2017-08-18] MEDS: LEVOFLOXACIN 500 MG TABLET PO SCH (09:41)
[2017-08-18] MEDS: FERROUS SULFATE 325 MG TABLET PO SCH (09:41)
[2017-08-18] MEDS: POTASSIUM CHLORIDE 20 MEQ TABLET PO SCH ×2 (09:41→20:57)
[2017-08-18] MEDS: FUROSEMIDE 80 MG TABLET PO SCH (09:42)
[2017-08-18] MEDS: ASCORBIC ACID 500 MG TABLET PO SCH (09:42)
[2017-08-18] MEDS: ASPIRIN EC 81 MG TABLET PO SCH (09:42)
[2017-08-18] MEDS: GABAPENTIN 100 MG CAPSULE PO SCH ×3 (09:42→20:57)
[2017-08-18] MEDS: MULTIVITAMIN (OCUVITE) TABLET PO SCH (09:42)
[2017-08-18] MEDS: SPIRONOLACTONE 25 MG TABLET PO SCH (09:42)
[2017-08-18] MEDS: PANTOPRAZOLE 40 MG TABLET PO SCH (09:42)
[2017-08-18] MEDS: ENOXAPARIN 40 MG/0.4 ML SYRINGE SUBCUT SCH (18:29)
[2017-08-18] MEDS: rOPINIRole 4 MG TABLET PO SCH (20:56)
[2017-08-18] MEDS: ATORVASTATIN 40 MG TABLET PO SCH (20:56)
[2017-08-18] MEDS: metOLazone 2.5 MG TABLET PO SCH (20:56)
[2017-08-18] MEDS: SERTRALINE 100 MG TABLET PO SCH (20:56)
[2017-08-18] MEDS: TERAZOSIN 10 MG CAPSULE PO SCH (20:59)
[2017-08-19 06:19] LABS: Basophils % 0.2 % (0.0-0.8); Eosinophils # 0.4 10*3/uL (0.0-0.87); Eosinophils % 2.3 % (0.00-10.9); Hematocrit 39.2 VOL% (42.0-52.0); Hemoglobin 13.1 GM/DL (14.0-18.0); Immature Granulocytes % 17.1 %; Immature Granulocytes Absolute 3.03 #; Lymphocytes # 1.8 10*3/uL (1.4-4.0); Lymphocytes % 9.9 % (21.2-54.2); Mean Corpuscular HGB Conc 33.4 GM/DL (32-36); Mean Corpuscular Hemoglobin 29 PG (27-34); Mean Platelet Volume 9.7 FL (9.6-12.0); Monocytes % 5.6 % (1.7-12.7); Neutrophils # 11.5 10*3/uL (1.4-7.4); Neutrophils % 64.9 % (38.7-73.9); Platelet Count 339 T/CUMM (130-400); Red Blood Count 4.56 MC/CUMM (3.8-5.5); Red Cell Distribution Width 16.3 % (9.3-17.3); White Blood Count 17.7 T/CUMM (4-12)
[2017-08-19 06:54] LABS: Calcium 8.2 MG/DL (8.5-10.1); Magnesium 2.7 MG/DL (1.8-2.4); Osmolality,Calculated 284.8 MOS/KG (273-304); Potassium 4.6 MMOL/L (3.5-5.1)
[2017-08-19 07:39] LABS: Eosinophils 1 % (0-10); Hypochromasia 1+; Lymphocytes 17 % (20-55); Platelet Estimate Adequate; Segmented Neutrophils 74 % (50-85); Total Cells Counted 100
[2017-08-19] MEDS: INSULIN REGULAR 100 UNIT/ML SUBCUT SCH ×4 (09:08→21:30)
[2017-08-19] MEDS: FUROSEMIDE 80 MG TABLET PO SCH (09:09)
[2017-08-19] MEDS: ASPIRIN EC 81 MG TABLET PO SCH (09:09)
[2017-08-19] MEDS: SACUBITRIL/VALSARTAN 49-51 MG TABLET PO SCH ×2 (09:09→21:34)
[2017-08-19] MEDS: FERROUS SULFATE 325 MG TABLET PO SCH (09:09)
[2017-08-19] MEDS: MULTIVITAMIN (OCUVITE) TABLET PO SCH (09:09)
[2017-08-19] MEDS: DOCUSATE SODIUM 100 MG CAPSULE PO SCH ×2 (09:09→21:33)
[2017-08-19] MEDS: SPIRONOLACTONE 25 MG TABLET PO SCH (09:09)
[2017-08-19] MEDS: POTASSIUM CHLORIDE 20 MEQ TABLET PO SCH ×2 (09:09→21:32)
[2017-08-19] MEDS: GABAPENTIN 100 MG CAPSULE PO SCH ×3 (09:10→21:32)
[2017-08-19] MEDS: PANTOPRAZOLE 40 MG TABLET PO SCH (09:10)
[2017-08-19] MEDS: ASCORBIC ACID 500 MG TABLET PO SCH (09:10)
[2017-08-19] MEDS: LEVOFLOXACIN 500 MG TABLET PO SCH (09:10)
[2017-08-19] MEDS ORDERED: BISACODYL 5 MG TABLET PO ONE (14:35)
[2017-08-19] MEDS: ENOXAPARIN 40 MG/0.4 ML SYRINGE SUBCUT SCH (17:23)
[2017-08-19] MEDS: rOPINIRole 4 MG TABLET PO SCH (21:31)
[2017-08-19] MEDS: SERTRALINE 100 MG TABLET PO SCH (21:32)
[2017-08-19] MEDS: ATORVASTATIN 40 MG TABLET PO SCH (21:33)
[2017-08-19] MEDS: DESITIN 4OZ/NYSTATIN 15 GRAM MIXTURE PASTE TOP SCH (21:39)
[2017-08-19] MEDS: TERAZOSIN 10 MG CAPSULE PO SCH (21:39)
[2017-08-20 06:14] LABS: Basophils % 0.2 % (0.0-0.8); Eosinophils # 0.3 10*3/uL (0.0-0.87); Eosinophils % 2.2 % (0.00-10.9); Hematocrit 39.9 VOL% (42.0-52.0); Hemoglobin 12.9 GM/DL (14.0-18.0); Immature Granulocytes Absolute 1.95 #; Lymphocytes # 1.6 10*3/uL (1.4-4.0); Lymphocytes % 12.7 % (21.2-54.2); Mean Corpuscular HGB Conc 32.3 GM/DL (32-36); Mean Corpuscular Hemoglobin 28 PG (27-34); Mean Corpuscular Volume 87.9 FL (87-102); Monocytes # 0.9 10*3/uL (0.11-0.8); Monocytes % 7.3 % (1.7-12.7); Neutrophils # 8.1 10*3/uL (1.4-7.4); Neutrophils % 62.6 % (38.7-73.9); Platelet Count 332 T/CUMM (130-400); Red Blood Count 4.54 MC/CUMM (3.8-5.5); Red Cell Distribution Width 16.3 % (9.3-17.3)
[2017-08-20 06:44] LABS: Calcium 8.2 MG/DL (8.5-10.1); Magnesium 2.5 MG/DL (1.8-2.4); Potassium 4.3 MMOL/L (3.5-5.1)
[2017-08-20] MEDS: INSULIN REGULAR 100 UNIT/ML SUBCUT SCH ×4 (08:39→21:59)
[2017-08-20] MEDS: ASPIRIN EC 81 MG TABLET PO SCH (09:46)
[2017-08-20] MEDS: MULTIVITAMIN (OCUVITE) TABLET PO SCH (09:46)
[2017-08-20] MEDS: ASCORBIC ACID 500 MG TABLET PO SCH (09:46)
[2017-08-20] MEDS: GABAPENTIN 100 MG CAPSULE PO SCH ×3 (09:46→21:57)
[2017-08-20] MEDS: POTASSIUM CHLORIDE 20 MEQ TABLET PO SCH ×2 (09:46→21:58)
[2017-08-20] MEDS: POLYETHYLENE GLYCOL POWDER 17 GM PACK PO SCH (09:46)
[2017-08-20] MEDS: SPIRONOLACTONE 25 MG TABLET PO SCH (09:46)
[2017-08-20] MEDS: LEVOFLOXACIN 500 MG TABLET PO SCH (09:47)
[2017-08-20] MEDS: FERROUS SULFATE 325 MG TABLET PO SCH (09:47)
[2017-08-20] MEDS: DOCUSATE SODIUM 100 MG CAPSULE PO SCH ×2 (09:47→21:56)
[2017-08-20] MEDS: SACUBITRIL/VALSARTAN 49-51 MG TABLET PO SCH ×2 (09:47→21:57)
[2017-08-20] MEDS: PANTOPRAZOLE 40 MG TABLET PO SCH (09:47)
[2017-08-20] MEDS: DESITIN 4OZ/NYSTATIN 15 GRAM MIXTURE PASTE TOP SCH ×2 (09:47→22:00)
[2017-08-20] MEDS: FUROSEMIDE 80 MG TABLET PO SCH (09:47)
[2017-08-20] MEDS: ENOXAPARIN 40 MG/0.4 ML SYRINGE SUBCUT SCH (17:12)
[2017-08-20] MEDS: MAGNESIUM HYDROXIDE SUSP 30 ML UDCUP PO PRN (21:56)
[2017-08-20] MEDS: rOPINIRole 4 MG TABLET PO SCH (21:56)
[2017-08-20] MEDS: SERTRALINE 100 MG TABLET PO SCH (21:57)
[2017-08-20] MEDS: TERAZOSIN 10 MG CAPSULE PO SCH (21:57)
[2017-08-20] MEDS: ATORVASTATIN 40 MG TABLET PO SCH (21:57)
[2017-08-21 06:13] LABS: Basophils # 0.1 10*3/uL (0.0-0.2); Basophils % 0.8 % (0.0-0.8); Eosinophils # 0.2 10*3/uL (0.0-0.87); Eosinophils % 1.8 % (0.00-10.9); Hematocrit 37.2 VOL% (42.0-52.0); Immature Granulocytes % 8.8 %; Immature Granulocytes Absolute 1.08 #; Lymphocytes # 1.5 10*3/uL (1.4-4.0); Lymphocytes % 11.9 % (21.2-54.2); Mean Corpuscular HGB Conc 32.3 GM/DL (32-36); Mean Corpuscular Hemoglobin 28 PG (27-34); Mean Corpuscular Volume 87.3 FL (87-102); Mean Platelet Volume 10.2 FL (9.6-12.0); Monocytes # 1.2 10*3/uL (0.11-0.8); Monocytes % 9.7 % (1.7-12.7); Neutrophils # 8.3 10*3/uL (1.4-7.4); Platelet Count 288 T/CUMM (130-400); Red Blood Count 4.26 MC/CUMM (3.8-5.5); Red Cell Distribution Width 16.2 % (9.3-17.3); White Blood Count 12.3 T/CUMM (4-12)
[2017-08-21 06:39] LABS: Eosinophils 1 % (0-10); Hypochromasia 1+; Lymphocytes 14 % (20-55); Myelocytes 1 %; Segmented Neutrophils 77 % (50-85); Total Cells Counted 100
[2017-08-21 06:40] LABS: Microcytosis 1+; Ovalocytes Slight; Platelet Estimate Normal
[2017-08-21 06:52] LABS: Magnesium 2.7 MG/DL (1.8-2.4); Potassium 4.5 MMOL/L (3.5-5.1)
[2017-08-21] MEDS: INSULIN REGULAR 100 UNIT/ML SUBCUT SCH (11:25)
[2017-08-21] MEDS: ASCORBIC ACID 500 MG TABLET PO SCH (11:27)
[2017-08-21] MEDS: DOCUSATE SODIUM 100 MG CAPSULE PO SCH (11:27)
[2017-08-21] MEDS: SPIRONOLACTONE 25 MG TABLET PO SCH (11:28)
[2017-08-21] MEDS: FUROSEMIDE 80 MG TABLET PO SCH (11:28)
[2017-08-21] MEDS: ASPIRIN EC 81 MG TABLET PO SCH (11:29)
[2017-08-21] MEDS: LEVOFLOXACIN 500 MG TABLET PO SCH (11:30)
[2017-08-21] MEDS: FERROUS SULFATE 325 MG TABLET PO SCH (11:30)
[2017-08-21] MEDS: GABAPENTIN 100 MG CAPSULE PO SCH (11:30)
[2017-08-21] MEDS: POLYETHYLENE GLYCOL POWDER 17 GM PACK PO SCH (11:31)
[2017-08-21] MEDS: PANTOPRAZOLE 40 MG TABLET PO SCH (11:31)
[2017-08-21] MEDS: SACUBITRIL/VALSARTAN 49-51 MG TABLET PO SCH (11:31)
[2017-08-21] MEDS: POTASSIUM CHLORIDE 20 MEQ TABLET PO SCH (11:31)
[2017-08-21] MEDS: MULTIVITAMIN (OCUVITE) TABLET PO SCH (11:31)
[2017-08-21 11:54] VITALS: BP 91/48
[2017-08-21] MEDS ORDERED: TERAZOSIN 5 MG CAPSULE PO SCH (21:00)
== END 2017-08-21 13:30 | disposition swing bed (61) | DRG 291 ==
LOC: N.ED 16:43 → N.EDINP 18:44 → N.CC 19:05 → N.3E 08-15 10:43

== ENCOUNTER 2017-11-06 13:52 | Inpatient (IN) ==
[2017-11-06 14:24] LABS: Basophils % 0.3 % (0.0-0.8); Eosinophils # 0.2 10*3/uL (0.0-0.87); Eosinophils % 2.1 % (0.00-10.9); Hematocrit 37.1 VOL% (42.0-52.0); Hemoglobin 11.6 GM/DL (14.0-18.0); Immature Granulocytes Absolute 0.11 #; Lymphocytes # 0.7 10*3/uL (1.4-4.0); Lymphocytes % 6.9 % (21.2-54.2); Mean Corpuscular HGB Conc 31.3 GM/DL (32-36); Mean Corpuscular Hemoglobin 28 PG (27-34); Mean Corpuscular Volume 89.2 FL (87-102); Mean Platelet Volume 9.7 FL (9.6-12.0); Monocytes # 0.5 10*3/uL (0.11-0.8); Neutrophils # 9.1 10*3/uL (1.4-7.4); Neutrophils % 84.7 % (38.7-73.9); Platelet Count 245 T/CUMM (130-400); Red Blood Count 4.16 MC/CUMM (3.8-5.5); Red Cell Distribution Width 16.1 % (9.3-17.3); White Blood Count 10.7 T/CUMM (4-12)
[2017-11-06 14:30] LABS: ABG Base Excess -0.4 MMOL/L (-2.5-2.5); ABG HCO3 23.9 MMOL/L (20-26); ABG Oxygen Saturation 88.8 % (95-100); ABG PCO2 35.6 MM HG (35-48); ABG PH 7.428 (7.35-7.45); ABG PO2 58.6 MM HG (80-95)
[2017-11-06 14:33] LABS: PT Patient Result 10.8 SECS
[2017-11-06 14:50] LABS: Albumin 3.7 G/DL (3.4-5.0); Bilirubin,Total 0.5 MG/DL (0.2-1.0); Calcium 8.6 MG/DL (8.5-10.1); Osmolality,Calculated 286.8 MOS/KG (273-304); Potassium 4.8 MMOL/L (3.5-5.1); Total Protein 7.2 G/DL (6.4-8.3); Troponin I Only 0.021 NG/ML (0.00-0.045)
[2017-11-06] MEDS ORDERED: methylPREDNISolone SOD SUC 125 MG/2 ML VIAL IV STA (15:08)
[2017-11-06] MEDS ORDERED: diphenhydrAMINE 50 MG/1 ML VIAL IV STA (15:09)
[2017-11-06] MEDS ORDERED: diphenhydrAMINE 50 MG/1 ML VIAL ONE (15:11)
[2017-11-06] MEDS ORDERED: methylPREDNISolone SOD SUC 125 MG/2 ML VIAL ONE (15:11)
[2017-11-06] MEDS ORDERED: FUROSEMIDE 40 MG/4 ML VIAL IV STA (16:25)
[2017-11-06] MEDS ORDERED: FUROSEMIDE 100 MG/10 ML VIAL ONE (16:40)
[2017-11-06] MEDS ORDERED: MAGNESIUM SULF RIDER 4 GM in PREMIX 1 EACH IV PRN (17:22)
[2017-11-06] MEDS ORDERED: MAGNESIUM SULF RIDER 2 GM in PREMIX 1 EACH IV PRN (17:22)
[2017-11-06] MEDS ORDERED: GLUCAGON 1 MG VIAL IM PRN ×2 (17:22)
[2017-11-06] MEDS ORDERED: ALBUTEROL 2.5 MG/3 ML NEB RESP TX PRN (17:22)
[2017-11-06] MEDS ORDERED: DEXTROSE 50% 25 GM/50 ML VIAL IV PRN ×2 (17:22)
[2017-11-06] MEDS ORDERED: ONDANSETRON 4 MG/2 ML VIAL IV PRN (17:22)
[2017-11-06] MEDS: ALBUTEROL/IPRATROPIUM 3 ML NEB RESP TX SCH (20:30)
[2017-11-06] MEDS ORDERED: TERAZOSIN 10 MG CAPSULE PO SCH (21:00)
[2017-11-06] MEDS: ENOXAPARIN 40 MG/0.4 ML SYRINGE SUBCUT SCH (21:09)
[2017-11-06] MEDS: ATORVASTATIN 40 MG TABLET PO SCH (21:10)
[2017-11-06] MEDS: GABAPENTIN 100 MG CAPSULE PO SCH (21:10)
[2017-11-06] MEDS: DOCUSATE SODIUM 100 MG CAPSULE PO SCH (21:10)
[2017-11-06] MEDS: SERTRALINE 100 MG TABLET PO SCH (21:10)
[2017-11-06] MEDS: POTASSIUM CHLORIDE 20 MEQ TABLET PO SCH (21:11)
[2017-11-06] MEDS: rOPINIRole 4 MG TABLET PO SCH (21:13)
[2017-11-06] MEDS: INSULIN REGULAR 100 UNIT/ML SUBCUT SCH (21:13)
[2017-11-06] MEDS: methylPREDNISolone SOD SUC 40 MG/1 ML VIAL IV SCH (23:28)
[2017-11-07] MEDS: ALBUTEROL/IPRATROPIUM 3 ML NEB RESP TX SCH ×4 (00:48→19:26)
[2017-11-07 06:44] LABS: Basophils % 0.1 % (0.0-0.8); Hemoglobin 11.8 GM/DL (14.0-18.0); Immature Granulocytes % 1.1 %; Lymphocytes # 0.3 10*3/uL (1.4-4.0); Lymphocytes % 3.6 % (21.2-54.2); Mean Corpuscular HGB Conc 32.8 GM/DL (32-36); Mean Corpuscular Hemoglobin 28 PG (27-34); Mean Corpuscular Volume 86.1 FL (87-102); Mean Platelet Volume 10.5 FL (9.6-12.0); Monocytes # 0.4 10*3/uL (0.11-0.8); Monocytes % 4.8 % (1.7-12.7); Neutrophils # 8.2 10*3/uL (1.4-7.4); Neutrophils % 90.4 % (38.7-73.9); Platelet Count 288 T/CUMM (130-400); Red Blood Count 4.18 MC/CUMM (3.8-5.5); Red Cell Distribution Width 16.1 % (9.3-17.3); White Blood Count 9.1 T/CUMM (4-12)
[2017-11-07] MEDS: methylPREDNISolone SOD SUC 40 MG/1 ML VIAL IV SCH ×3 (07:03→22:43)
[2017-11-07 07:12] LABS: Albumin 3.6 G/DL (3.4-5.0); Bilirubin,Total 0.6 MG/DL (0.2-1.0); Calcium 8.8 MG/DL (8.5-10.1); Osmolality,Calculated 290.5 MOS/KG (273-304); Potassium 4.7 MMOL/L (3.5-5.1); Total Protein 7.3 G/DL (6.4-8.3)
[2017-11-07] MEDS: INSULIN REGULAR 100 UNIT/ML SUBCUT SCH ×4 (08:19→21:19)
[2017-11-07] MEDS ORDERED: LUTEIN PO SCH (09:00)
[2017-11-07] MEDS: FUROSEMIDE 40 MG/4 ML VIAL IV SCH ×2 (09:04→15:02)
[2017-11-07] MEDS: GABAPENTIN 100 MG CAPSULE PO SCH ×3 (09:06→20:36)
[2017-11-07] MEDS: PANTOPRAZOLE 40 MG TABLET PO SCH (09:06)
[2017-11-07] MEDS: POTASSIUM CHLORIDE 20 MEQ TABLET PO SCH ×2 (09:06→20:36)
[2017-11-07] MEDS: SPIRONOLACTONE 50 MG TABLET PO SCH (09:08)
[2017-11-07] MEDS: ASPIRIN EC 81 MG TABLET PO SCH (09:08)
[2017-11-07] MEDS: FERROUS SULFATE 325 MG TABLET PO SCH (09:08)
[2017-11-07] MEDS: ASCORBIC ACID 500 MG TABLET PO SCH (09:08)
[2017-11-07 13:10] LABS: Apearance,Urine CLEAR (Clear); Bilirubin,Urine Negative (Negative); Blood, Urine Negative (Negative); Glucose,Urine (UA) Negative (Negative); Hyaline Casts,Urine 3 /LPF (0-3); Ketones,Urine Negative (Negative); Nitrite,Urine Negative (Negative); Protein,Urine Negative; RBC,Urine 1 /HPF (0-4); Urine Color Straw (Yellow); Urine Specific Gravity 1.011 (1.001-1.035); Urine Urobilinogen < 2.0 EU/DL (0.2-1.0); WBC,Urine <1 /HPF (0-6)
[2017-11-07] MEDS: diphenhydrAMINE CAP 25 MG CAPSULE PO SCH ×2 (18:35→23:00)
[2017-11-07] MEDS: DOCUSATE SODIUM 100 MG CAPSULE PO SCH (20:35)
[2017-11-07] MEDS: FAMOTIDINE 20 MG TABLET PO SCH (20:36)
[2017-11-07] MEDS: ATORVASTATIN 40 MG TABLET PO SCH (20:36)
[2017-11-07] MEDS: ENOXAPARIN 40 MG/0.4 ML SYRINGE SUBCUT SCH (20:36)
[2017-11-07] MEDS: SERTRALINE 100 MG TABLET PO SCH (20:37)
[2017-11-07] MEDS: rOPINIRole 4 MG TABLET PO SCH (20:37)
[2017-11-07] MEDS ORDERED: TERAZOSIN 5 MG CAPSULE PO SCH (21:00)
[2017-11-08] MEDS: ALBUTEROL/IPRATROPIUM 3 ML NEB RESP TX SCH ×3 (00:22→13:40)
[2017-11-08 04:36] LABS: ABG Base Excess 0.8 MMOL/L (-2.5-2.5); ABG HCO3 25.1 MMOL/L (20-26); ABG PCO2 39.5 MM HG (35-48); ABG PH 7.415 (7.35-7.45); ABG PO2 93.5 MM HG (80-95); ABG TCO2 22.6 MMOL/L (23-27); Allen Test Positive; Pt O2 Delivery Device CPAP
[2017-11-08] MEDS: methylPREDNISolone SOD SUC 40 MG/1 ML VIAL IV SCH ×2 (06:28→14:30)
[2017-11-08] MEDS: diphenhydrAMINE CAP 25 MG CAPSULE PO SCH ×2 (06:30→11:32)
[2017-11-08 06:39] LABS: Albumin 3.5 G/DL (3.4-5.0); Bilirubin,Total 1.4 MG/DL (0.2-1.0); Calcium 8.9 MG/DL (8.5-10.1); Osmolality,Calculated 292.4 MOS/KG (273-304); Potassium 4.3 MMOL/L (3.5-5.1); Total Protein 6.7 G/DL (6.4-8.3)
[2017-11-08] MEDS ORDERED: DIAZEPAM 5 MG TABLET PO ONE (07:03)
[2017-11-08] MEDS ORDERED: POTASSIUM CHLORIDE RIDER 10 MEQ in PREMIX 1 EACH IV PRN (07:03)
[2017-11-08] MEDS ORDERED: MAGNESIUM SULF RIDER 2 GM in PREMIX 1 EACH IV PRN (07:03)
[2017-11-08] MEDS: INSULIN REGULAR 100 UNIT/ML SUBCUT SCH ×2 (07:09→11:29)
[2017-11-08] MEDS ORDERED: metOLazone 5 MG TABLET PO SCH (07:30)
[2017-11-08] MEDS ORDERED: SODIUM CHLORIDE 0.45% 1,000 ML IV SCH (07:30)
[2017-11-08] MEDS: FAMOTIDINE 20 MG TABLET PO SCH (08:14)
[2017-11-08] MEDS: SPIRONOLACTONE 50 MG TABLET PO SCH (08:15)
[2017-11-08] MEDS: ASPIRIN EC 81 MG TABLET PO SCH (08:15)
[2017-11-08] MEDS ORDERED: LIDOCAINE 1% 20 ML VIAL ONE (08:33)
[2017-11-08] MEDS ORDERED: HEPARIN/NACL 0.9% 2 UNITS/ML 1,000 ML IV ONE (08:33)
[2017-11-08] MEDS ORDERED: MIDAZOLAM 2 MG/2 ML VIAL ONE (08:50)
[2017-11-08] MEDS ORDERED: fentaNYL 100 MCG/2 ML VIAL ONE (08:50)
[2017-11-08] MEDS ORDERED: ACETAMINOPHEN 325 MG TABLET PO PRN (09:47)
[2017-11-08] MEDS: FUROSEMIDE 40 MG/4 ML VIAL IV SCH (11:25)
[2017-11-08] MEDS: POTASSIUM CHLORIDE 20 MEQ TABLET PO SCH (11:31)
[2017-11-08] MEDS: GABAPENTIN 100 MG CAPSULE PO SCH ×2 (11:31→14:31)
[2017-11-08] MEDS: ASCORBIC ACID 500 MG TABLET PO SCH (11:31)
[2017-11-08] MEDS: PANTOPRAZOLE 40 MG TABLET PO SCH (11:31)
[2017-11-08] MEDS: FERROUS SULFATE 325 MG TABLET PO SCH (11:31)
[2017-11-08 15:44] VITALS: BP 121/61
== END 2017-11-08 15:30 | disposition hospice, home (50) | DRG 286 ==
LOC: EDBD → EDUNIT# → N.ED 13:52 → N.EDINP 16:31 → N.5E 20:40 → N.CC 11-08 09:53
PROVIDERS: ADMIT Internal Medicine; ATTEND Internal Medicine

== ENCOUNTER 2017-12-08 12:45 | Inpatient (IN) ==
[2017-12-08] MEDS ORDERED: FUROSEMIDE 100 MG/10 ML VIAL IV STA (14:13)
[2017-12-08 14:28] LABS: Basophils % 0.4 % (0.0-0.8); Eosinophils # 0.5 10*3/uL (0.0-0.87); Eosinophils % 5.7 % (0.00-10.9); Hematocrit 37.2 VOL% (42.0-52.0); Hemoglobin 12.1 GM/DL (14.0-18.0); Immature Granulocytes % 0.8 %; Immature Granulocytes Absolute 0.08 #; Lymphocytes # 0.8 10*3/uL (1.4-4.0); Lymphocytes % 8.3 % (21.2-54.2); Mean Corpuscular HGB Conc 32.5 GM/DL (32-36); Mean Corpuscular Hemoglobin 28 PG (27-34); Mean Corpuscular Volume 85.1 FL (87-102); Mean Platelet Volume 9.9 FL (9.6-12.0); Monocytes # 0.9 10*3/uL (0.11-0.8); Monocytes % 9.6 % (1.7-12.7); Neutrophils # 7.1 10*3/uL (1.4-7.4); Neutrophils % 75.2 % (38.7-73.9); Platelet Count 239 T/CUMM (130-400); Red Blood Count 4.37 MC/CUMM (3.8-5.5); Red Cell Distribution Width 15.5 % (9.3-17.3); White Blood Count 9.5 T/CUMM (4-12)
[2017-12-08] MEDS ORDERED: FUROSEMIDE 100 MG/10 ML VIAL ONE (14:35)
[2017-12-08 14:51] LABS: Albumin 3.5 G/DL (3.4-5.0); Bilirubin,Total 0.5 MG/DL (0.2-1.0); Calcium 8.9 MG/DL (8.5-10.1); Osmolality,Calculated 270.5 MOS/KG (273-304); Potassium 3.4 MMOL/L (3.5-5.1); Total Protein 7.7 G/DL (6.4-8.3); Troponin I Only 0.041 NG/ML (0.00-0.045)
[2017-12-08] MEDS ORDERED: ALBUTEROL/IPRATROPIUM 3 ML NEB RESP TX PRN (18:05)
[2017-12-08] MEDS ORDERED: DEXTROSE 50% 25 GM/50 ML VIAL IV PRN ×2 (18:07)
[2017-12-08] MEDS ORDERED: MAGNESIUM SULF RIDER 4 GM in PREMIX 1 EACH IV PRN (18:07)
[2017-12-08] MEDS ORDERED: ONDANSETRON 4 MG/2 ML VIAL IV PRN (18:07)
[2017-12-08] MEDS ORDERED: GLUCAGON 1 MG VIAL IM PRN ×2 (18:07)
[2017-12-08] MEDS ORDERED: ACETAMINOPHEN 325 MG TABLET PO PRN (18:07)
[2017-12-08] MEDS ORDERED: MAGNESIUM SULF RIDER 2 GM in PREMIX 1 EACH IV PRN (18:07)
[2017-12-08] MEDS ORDERED: TERAZOSIN 10 MG CAPSULE PO SCH (21:00)
[2017-12-08] MEDS ORDERED: CARVEDILOL 3.125 MG TABLET PO SCH (21:00)
[2017-12-08] MEDS: rOPINIRole 4 MG TABLET PO SCH (21:31)
[2017-12-08] MEDS: ATORVASTATIN 20 MG TABLET PO SCH (21:32)
[2017-12-08] MEDS: POTASSIUM CHLORIDE 20 MEQ TABLET PO SCH (21:32)
[2017-12-08] MEDS: SERTRALINE 100 MG TABLET PO SCH (21:33)
[2017-12-08] MEDS: DOCUSATE SODIUM 100 MG CAPSULE PO SCH (21:33)
[2017-12-08] MEDS: INSULIN REGULAR 100 UNIT/ML SUBCUT SCH (21:34)
[2017-12-08] MEDS: FERROUS SULFATE 325 MG TABLET PO SCH (21:34)
[2017-12-08] MEDS: GABAPENTIN 100 MG CAPSULE PO SCH (21:34)
[2017-12-08] MEDS: ENOXAPARIN 40 MG/0.4 ML SYRINGE SUBCUT SCH (21:35)
[2017-12-08] MEDS: TERAZOSIN 5 MG CAPSULE PO SCH (21:36)
[2017-12-09 01:25] LABS: Basophils % 0.3 % (0.0-0.8); Eosinophils # 0.7 10*3/uL (0.0-0.87); Eosinophils % 6.9 % (0.00-10.9); Hematocrit 34.6 VOL% (42.0-52.0); Hemoglobin 11.8 GM/DL (14.0-18.0); Immature Granulocytes % 0.7 %; Immature Granulocytes Absolute 0.07 #; Lymphocytes % 10.2 % (21.2-54.2); Mean Corpuscular HGB Conc 34.1 GM/DL (32-36); Mean Corpuscular Hemoglobin 28 PG (27-34); Mean Platelet Volume 10.1 FL (9.6-12.0); Monocytes % 10.4 % (1.7-12.7); Neutrophils # 6.8 10*3/uL (1.4-7.4); Neutrophils % 71.5 % (38.7-73.9); Platelet Count 224 T/CUMM (130-400); Red Blood Count 4.22 MC/CUMM (3.8-5.5); Red Cell Distribution Width 15.6 % (9.3-17.3); White Blood Count 9.4 T/CUMM (4-12)
[2017-12-09 01:54] LABS: Calcium 8.7 MG/DL (8.5-10.1); Osmolality,Calculated 272.2 MOS/KG (273-304); Potassium 3.2 MMOL/L (3.5-5.1)
[2017-12-09 02:06] LABS: Thyroid Stimulating Hormone 2.13 uIU/ml (0.358-3.74)
[2017-12-09] MEDS: INSULIN REGULAR 100 UNIT/ML SUBCUT SCH ×4 (07:55→20:57)
[2017-12-09] MEDS ORDERED: metFORMIN 850 MG TABLET PO SCH (08:00)
[2017-12-09] MEDS: FUROSEMIDE 40 MG/4 ML VIAL IV SCH ×2 (08:45→16:30)
[2017-12-09] MEDS: POTASSIUM CHLORIDE 20 MEQ TABLET PO SCH ×2 (08:46→21:08)
[2017-12-09] MEDS: CLOPIDOGREL 75 MG TABLET PO SCH (08:46)
[2017-12-09] MEDS: GABAPENTIN 100 MG CAPSULE PO SCH ×3 (08:46→21:08)
[2017-12-09] MEDS: ASPIRIN EC 81 MG TABLET PO SCH (08:46)
[2017-12-09] MEDS: PANTOPRAZOLE 40 MG TABLET PO SCH (08:46)
[2017-12-09] MEDS: FERROUS SULFATE 325 MG TABLET PO SCH ×4 (08:46→21:07)
[2017-12-09] MEDS: metOLazone 2.5 MG TABLET PO SCH (08:46)
[2017-12-09] MEDS ORDERED: ASCORBIC ACID 500 MG TABLET PO SCH (09:00)
[2017-12-09] MEDS ORDERED: DEXTROSE 50% 25 GM/50 ML VIAL IV PRN (10:45)
[2017-12-09] MEDS ORDERED: POTASSIUM CHLORIDE 20 MEQ TABLET PO ONE (10:53)
[2017-12-09 11:03] LABS: Risk Ratio 2.58; VLDL CHOLESTEROL 17.2 MG/DL
[2017-12-09] MEDS: ALBUTEROL/IPRATROPIUM 3 ML NEB RESP TX SCH ×2 (15:08→23:17)
[2017-12-09] MEDS: SPIRONOLACTONE 50 MG TABLET PO SCH (16:30)
[2017-12-09] MEDS: DOCUSATE SODIUM 100 MG CAPSULE PO SCH (21:07)
[2017-12-09] MEDS: ASCORBIC ACID 500 MG TABLET PO SCH (21:07)
[2017-12-09] MEDS: SERTRALINE 100 MG TABLET PO SCH (21:07)
[2017-12-09] MEDS: rOPINIRole 4 MG TABLET PO SCH (21:08)
[2017-12-09] MEDS: ENOXAPARIN 40 MG/0.4 ML SYRINGE SUBCUT SCH (21:08)
[2017-12-09] MEDS: ATORVASTATIN 20 MG TABLET PO SCH (21:08)
[2017-12-09] MEDS: TERAZOSIN 5 MG CAPSULE PO SCH (21:08)
[2017-12-09 23:00] LABS: Apearance,Urine Clear (Clear); Bilirubin,Urine Negative (Negative); Blood, Urine Negative (Negative); Glucose,Urine (UA) Negative (Negative); Ketones,Urine Negative (Negative); Nitrite,Urine Negative (Negative); Protein,Urine Negative; Urine Color Yellow (Yellow); Urine Specific Gravity 1.005 (1.001-1.035)
[2017-12-09 23:01] LABS: Bacteria,Urine Few /HPF (Few); RBC,Urine 0-1 /HPF (0-4); Urine Urobilinogen < 1.0 EU/DL (0.2-1.0); WBC,Urine 0-1 /HPF (0-6)
[2017-12-10 06:37] LABS: Osmolality,Calculated 280.8 MOS/KG (273-304); Potassium 3.4 MMOL/L (3.5-5.1)
[2017-12-10] MEDS ORDERED: POLYETHYLENE GLYCOL POWDER 17 GM PACK PO PRN (07:16)
[2017-12-10] MEDS: INSULIN REGULAR 100 UNIT/ML SUBCUT SCH ×4 (07:30→21:49)
[2017-12-10] MEDS: ALBUTEROL/IPRATROPIUM 3 ML NEB RESP TX SCH ×2 (07:34→14:49)
[2017-12-10] MEDS: GABAPENTIN 100 MG CAPSULE PO SCH ×3 (08:29→21:48)
[2017-12-10] MEDS: FUROSEMIDE 40 MG/4 ML VIAL IV SCH ×2 (08:29→15:53)
[2017-12-10] MEDS: CLOPIDOGREL 75 MG TABLET PO SCH (08:29)
[2017-12-10] MEDS: metOLazone 2.5 MG TABLET PO SCH (08:29)
[2017-12-10] MEDS: POTASSIUM CHLORIDE 20 MEQ TABLET PO SCH ×2 (08:29→21:48)
[2017-12-10] MEDS: PANTOPRAZOLE 40 MG TABLET PO SCH (08:30)
[2017-12-10] MEDS: ASPIRIN EC 81 MG TABLET PO SCH (08:30)
[2017-12-10] MEDS: ASCORBIC ACID 500 MG TABLET PO SCH ×2 (08:30→21:49)
[2017-12-10] MEDS: FERROUS SULFATE 325 MG TABLET PO SCH ×4 (08:30→21:47)
[2017-12-10] MEDS: SPIRONOLACTONE 50 MG TABLET PO SCH (08:30)
[2017-12-10] MEDS: ENOXAPARIN 40 MG/0.4 ML SYRINGE SUBCUT SCH (21:47)
[2017-12-10] MEDS: rOPINIRole 4 MG TABLET PO SCH (21:47)
[2017-12-10] MEDS: ATORVASTATIN 20 MG TABLET PO SCH (21:48)
[2017-12-10] MEDS: TERAZOSIN 5 MG CAPSULE PO SCH (21:48)
[2017-12-10] MEDS: DOCUSATE SODIUM 100 MG CAPSULE PO SCH (21:49)
[2017-12-10] MEDS: SERTRALINE 100 MG TABLET PO SCH (21:49)
[2017-12-11] MEDS: ALBUTEROL/IPRATROPIUM 3 ML NEB RESP TX SCH ×4 (00:30→23:49)
[2017-12-11 07:38] LABS: Calcium 8.6 MG/DL (8.5-10.1); Osmolality,Calculated 280.8 MOS/KG (273-304); Potassium 3.3 MMOL/L (3.5-5.1)
[2017-12-11] MEDS: INSULIN REGULAR 100 UNIT/ML SUBCUT SCH ×4 (07:51→22:07)
[2017-12-11] MEDS ORDERED: POTASSIUM CHLORIDE 20 MEQ TABLET PO PRN (07:59)
[2017-12-11] MEDS ORDERED: POTASSIUM CHLORIDE 20 MEQ TABLET PO ONE (08:42)
[2017-12-11] MEDS: POTASSIUM CHLORIDE 20 MEQ TABLET PO SCH ×2 (09:37→22:19)
[2017-12-11] MEDS: ASPIRIN EC 81 MG TABLET PO SCH (09:37)
[2017-12-11] MEDS: ASCORBIC ACID 500 MG TABLET PO SCH ×2 (09:37→22:21)
[2017-12-11] MEDS: CLOPIDOGREL 75 MG TABLET PO SCH (09:37)
[2017-12-11] MEDS: PANTOPRAZOLE 40 MG TABLET PO SCH (09:38)
[2017-12-11] MEDS: SPIRONOLACTONE 50 MG TABLET PO SCH (09:38)
[2017-12-11] MEDS: GABAPENTIN 100 MG CAPSULE PO SCH ×3 (09:38→22:21)
[2017-12-11] MEDS: FERROUS SULFATE 325 MG TABLET PO SCH ×4 (09:38→22:19)
[2017-12-11] MEDS: metOLazone 2.5 MG TABLET PO SCH (09:38)
[2017-12-11] MEDS: FUROSEMIDE 40 MG/4 ML VIAL IV SCH (09:39)
[2017-12-11] MEDS: cefTRIAXone 1,000 MG in SYRINGE 1 EACH IV SCH (10:28)
[2017-12-11] MEDS: FUROSEMIDE 40 MG TABLET PO SCH (16:40)
[2017-12-11] MEDS: DOCUSATE SODIUM 100 MG CAPSULE PO SCH (22:19)
[2017-12-11] MEDS: methylPREDNISolone SOD SUC 40 MG/1 ML VIAL IV SCH (22:19)
[2017-12-11] MEDS: SERTRALINE 100 MG TABLET PO SCH (22:19)
[2017-12-11] MEDS: rOPINIRole 4 MG TABLET PO SCH (22:19)
[2017-12-11] MEDS: ATORVASTATIN 20 MG TABLET PO SCH (22:19)
[2017-12-11] MEDS: TERAZOSIN 5 MG CAPSULE PO SCH (22:20)
[2017-12-11] MEDS: CARVEDILOL 3.125 MG TABLET PO SCH (22:20)
[2017-12-11] MEDS: ENOXAPARIN 40 MG/0.4 ML SYRINGE SUBCUT SCH (22:21)
[2017-12-12 07:08] LABS: Calcium 8.7 MG/DL (8.5-10.1); Potassium 4.3 MMOL/L (3.5-5.1)
[2017-12-12] MEDS: ALBUTEROL/IPRATROPIUM 3 ML NEB RESP TX SCH ×2 (07:23→14:31)
[2017-12-12] MEDS: INSULIN REGULAR 100 UNIT/ML SUBCUT SCH ×4 (09:16→22:12)
[2017-12-12] MEDS: POTASSIUM CHLORIDE 20 MEQ TABLET PO SCH ×2 (09:23→22:11)
[2017-12-12] MEDS: CLOPIDOGREL 75 MG TABLET PO SCH (09:23)
[2017-12-12] MEDS: SPIRONOLACTONE 50 MG TABLET PO SCH (09:23)
[2017-12-12] MEDS: ASPIRIN EC 81 MG TABLET PO SCH (09:23)
[2017-12-12] MEDS: FERROUS SULFATE 325 MG TABLET PO SCH ×4 (09:23→22:13)
[2017-12-12] MEDS: metOLazone 2.5 MG TABLET PO SCH (09:23)
[2017-12-12] MEDS: FUROSEMIDE 40 MG TABLET PO SCH ×2 (09:23→17:14)
[2017-12-12] MEDS: ASCORBIC ACID 500 MG TABLET PO SCH ×2 (09:23→22:11)
[2017-12-12] MEDS: CARVEDILOL 3.125 MG TABLET PO SCH ×2 (09:24→22:12)
[2017-12-12] MEDS: PANTOPRAZOLE 40 MG TABLET PO SCH (09:24)
[2017-12-12] MEDS: GABAPENTIN 100 MG CAPSULE PO SCH ×3 (09:24→22:12)
[2017-12-12] MEDS: cefTRIAXone 1,000 MG in SYRINGE 1 EACH IV SCH (09:24)
[2017-12-12] MEDS: methylPREDNISolone SOD SUC 40 MG/1 ML VIAL IV SCH ×2 (09:24→22:13)
[2017-12-12 10:09] LABS: Allen Test Positive
[2017-12-12 10:11] LABS: ABG Base Excess 5.1 MMOL/L (-2.5-2.5); ABG HCO3 28.6 MMOL/L (20-26); ABG Oxygen Saturation 97.4 % (95-100); ABG PCO2 38.3 MM HG (35-48); ABG PH 7.491 (7.35-7.45); ABG PO2 98.4 MM HG (80-95); ABG TCO2 29.8 MMOL/L (23-27)
[2017-12-12] MEDS: BENZONATATE 100 MG CAPSULE PO SCH ×2 (12:29→22:11)
[2017-12-12] MEDS: MEROPENEM 500 MG in SYRINGE 1 EACH IV SCH ×2 (12:30→22:12)
[2017-12-12] MEDS: DOCUSATE SODIUM 100 MG CAPSULE PO SCH (22:10)
[2017-12-12] MEDS: SERTRALINE 100 MG TABLET PO SCH (22:11)
[2017-12-12] MEDS: ATORVASTATIN 20 MG TABLET PO SCH (22:11)
[2017-12-12] MEDS: TERAZOSIN 5 MG CAPSULE PO SCH (22:11)
[2017-12-12] MEDS: ENOXAPARIN 40 MG/0.4 ML SYRINGE SUBCUT SCH (22:12)
[2017-12-12] MEDS: rOPINIRole 4 MG TABLET PO SCH (22:12)
[2017-12-13] MEDS: ALBUTEROL/IPRATROPIUM 3 ML NEB RESP TX SCH ×3 (00:35→14:02)
[2017-12-13] MEDS: MEROPENEM 500 MG in SYRINGE 1 EACH IV SCH ×3 (06:08→21:32)
[2017-12-13] MEDS: FUROSEMIDE 40 MG TABLET PO SCH ×2 (09:02→15:42)
[2017-12-13] MEDS: CARVEDILOL 3.125 MG TABLET PO SCH ×2 (09:02→22:00)
[2017-12-13] MEDS: ASPIRIN EC 81 MG TABLET PO SCH (09:02)
[2017-12-13] MEDS: FERROUS SULFATE 325 MG TABLET PO SCH ×4 (09:02→21:36)
[2017-12-13] MEDS: GABAPENTIN 100 MG CAPSULE PO SCH ×3 (09:02→21:42)
[2017-12-13] MEDS: SPIRONOLACTONE 50 MG TABLET PO SCH (09:02)
[2017-12-13] MEDS: POTASSIUM CHLORIDE 20 MEQ TABLET PO SCH ×2 (09:02→21:41)
[2017-12-13] MEDS: CLOPIDOGREL 75 MG TABLET PO SCH (09:02)
[2017-12-13] MEDS: methylPREDNISolone SOD SUC 40 MG/1 ML VIAL IV SCH ×2 (09:03→21:33)
[2017-12-13] MEDS: metOLazone 2.5 MG TABLET PO SCH (09:03)
[2017-12-13] MEDS: ASCORBIC ACID 500 MG TABLET PO SCH ×2 (09:03→21:38)
[2017-12-13] MEDS: PANTOPRAZOLE 40 MG TABLET PO SCH (09:03)
[2017-12-13] MEDS: BENZONATATE 100 MG CAPSULE PO SCH ×2 (09:03→21:35)
[2017-12-13] MEDS: INSULIN REGULAR 100 UNIT/ML SUBCUT SCH ×4 (10:13→21:33)
[2017-12-13] MEDS: rOPINIRole 4 MG TABLET PO SCH (21:35)
[2017-12-13] MEDS: TERAZOSIN 5 MG CAPSULE PO SCH (21:35)
[2017-12-13] MEDS: DOCUSATE SODIUM 100 MG CAPSULE PO SCH (21:35)
[2017-12-13] MEDS: ENOXAPARIN 40 MG/0.4 ML SYRINGE SUBCUT SCH (21:41)
[2017-12-13] MEDS: SERTRALINE 100 MG TABLET PO SCH (21:42)
[2017-12-13] MEDS: ATORVASTATIN 20 MG TABLET PO SCH (21:42)
[2017-12-14] MEDS: ALBUTEROL/IPRATROPIUM 3 ML NEB RESP TX SCH ×3 (00:07→15:36)
[2017-12-14] MEDS: MEROPENEM 500 MG in SYRINGE 1 EACH IV SCH ×3 (04:31→22:45)
[2017-12-14 05:02] LABS: ABG Base Excess 5.1 MMOL/L (-2.5-2.5); ABG Oxygen Saturation 98.1 % (95-100); ABG PCO2 42.1 MM HG (35-48); ABG PH 7.454 (7.35-7.45); Allen Test Positive; Pt O2 Delivery Device CPAP
[2017-12-14 06:36] LABS: Basophils % 0.3 % (0.0-0.8); Eosinophils % 0.1 % (0.00-10.9); Hematocrit 37.3 VOL% (42.0-52.0); Hemoglobin 12.1 GM/DL (14.0-18.0); Immature Granulocytes % 2.3 %; Immature Granulocytes Absolute 0.24 #; Mean Corpuscular HGB Conc 32.4 GM/DL (32-36); Mean Corpuscular Hemoglobin 27 PG (27-34); Mean Corpuscular Volume 83.3 FL (87-102); Mean Platelet Volume 9.8 FL (9.6-12.0); Monocytes # 0.7 10*3/uL (0.11-0.8); Monocytes % 6.3 % (1.7-12.7); Neutrophils # 8.7 10*3/uL (1.4-7.4); Platelet Count 279 T/CUMM (130-400); Red Blood Count 4.48 MC/CUMM (3.8-5.5); Red Cell Distribution Width 15.3 % (9.3-17.3); White Blood Count 10.6 T/CUMM (4-12)
[2017-12-14 07:09] LABS: Calcium 8.7 MG/DL (8.5-10.1); Osmolality,Calculated 278.2 MOS/KG (273-304); Potassium 3.7 MMOL/L (3.5-5.1)
[2017-12-14] MEDS: INSULIN REGULAR 100 UNIT/ML SUBCUT SCH ×4 (08:28→23:58)
[2017-12-14] MEDS: methylPREDNISolone SOD SUC 40 MG/1 ML VIAL IV SCH ×2 (10:04→22:45)
[2017-12-14] MEDS: CLOPIDOGREL 75 MG TABLET PO SCH (10:05)
[2017-12-14] MEDS: POTASSIUM CHLORIDE 20 MEQ TABLET PO SCH ×2 (10:05→22:51)
[2017-12-14] MEDS: GABAPENTIN 100 MG CAPSULE PO SCH ×3 (10:05→22:50)
[2017-12-14] MEDS: BENZONATATE 100 MG CAPSULE PO SCH ×2 (10:05→22:49)
[2017-12-14] MEDS: metOLazone 2.5 MG TABLET PO SCH (10:05)
[2017-12-14] MEDS: PANTOPRAZOLE 40 MG TABLET PO SCH (10:06)
[2017-12-14] MEDS: CARVEDILOL 3.125 MG TABLET PO SCH ×2 (10:06→22:51)
[2017-12-14] MEDS: FUROSEMIDE 40 MG TABLET PO SCH ×2 (10:06→16:26)
[2017-12-14] MEDS: ASCORBIC ACID 500 MG TABLET PO SCH ×2 (10:06→22:50)
[2017-12-14] MEDS: SPIRONOLACTONE 50 MG TABLET PO SCH (10:06)
[2017-12-14] MEDS: FERROUS SULFATE 325 MG TABLET PO SCH ×4 (10:06→22:50)
[2017-12-14] MEDS: ASPIRIN EC 81 MG TABLET PO SCH (10:06)
[2017-12-14] MEDS: ENOXAPARIN 40 MG/0.4 ML SYRINGE SUBCUT SCH (22:46)
[2017-12-14] MEDS: DOCUSATE SODIUM 100 MG CAPSULE PO SCH (22:48)
[2017-12-14] MEDS: TERAZOSIN 5 MG CAPSULE PO SCH (22:48)
[2017-12-14] MEDS: rOPINIRole 4 MG TABLET PO SCH (22:48)
[2017-12-14] MEDS: SERTRALINE 100 MG TABLET PO SCH (22:50)
[2017-12-14] MEDS: ATORVASTATIN 20 MG TABLET PO SCH (22:50)
[2017-12-15] MEDS: ALBUTEROL/IPRATROPIUM 3 ML NEB RESP TX SCH ×4 (00:27→23:10)
[2017-12-15] MEDS: MEROPENEM 500 MG in SYRINGE 1 EACH IV SCH ×3 (04:30→21:00)
[2017-12-15 06:51] LABS: Basophils # 0.1 10*3/uL (0.0-0.2); Basophils % 0.4 % (0.0-0.8); Eosinophils % 0.1 % (0.00-10.9); Hematocrit 38.5 VOL% (42.0-52.0); Hemoglobin 12.5 GM/DL (14.0-18.0); Immature Granulocytes % 3.1 %; Immature Granulocytes Absolute 0.35 #; Lymphocytes # 0.8 10*3/uL (1.4-4.0); Lymphocytes % 6.8 % (21.2-54.2); Mean Corpuscular HGB Conc 32.5 GM/DL (32-36); Mean Corpuscular Hemoglobin 27 PG (27-34); Mean Corpuscular Volume 83.2 FL (87-102); Mean Platelet Volume 10.1 FL (9.6-12.0); Monocytes # 0.6 10*3/uL (0.11-0.8); Monocytes % 5.4 % (1.7-12.7); Neutrophils # 9.6 10*3/uL (1.4-7.4); Neutrophils % 84.2 % (38.7-73.9); Platelet Count 291 T/CUMM (130-400); Red Blood Count 4.63 MC/CUMM (3.8-5.5); Red Cell Distribution Width 15.5 % (9.3-17.3); White Blood Count 11.4 T/CUMM (4-12)
[2017-12-15 07:29] LABS: Potassium 4.5 MMOL/L (3.5-5.1)
[2017-12-15] MEDS: INSULIN REGULAR 100 UNIT/ML SUBCUT SCH ×4 (08:38→21:37)
[2017-12-15] MEDS: methylPREDNISolone SOD SUC 40 MG/1 ML VIAL IV SCH (08:38)
[2017-12-15] MEDS: FERROUS SULFATE 325 MG TABLET PO SCH ×5 (08:39→21:01)
[2017-12-15] MEDS: ASCORBIC ACID 500 MG TABLET PO SCH ×2 (08:39→21:01)
[2017-12-15] MEDS: FUROSEMIDE 40 MG TABLET PO SCH ×2 (08:39→16:01)
[2017-12-15] MEDS: metOLazone 2.5 MG TABLET PO SCH (08:39)
[2017-12-15] MEDS: CLOPIDOGREL 75 MG TABLET PO SCH (08:39)
[2017-12-15] MEDS: CARVEDILOL 3.125 MG TABLET PO SCH ×2 (08:39→21:01)
[2017-12-15] MEDS: POTASSIUM CHLORIDE 20 MEQ TABLET PO SCH ×2 (08:39→21:01)
[2017-12-15] MEDS: BENZONATATE 100 MG CAPSULE PO SCH ×2 (08:39→21:01)
[2017-12-15] MEDS: SPIRONOLACTONE 50 MG TABLET PO SCH (08:39)
[2017-12-15] MEDS: ASPIRIN EC 81 MG TABLET PO SCH (08:40)
[2017-12-15] MEDS: GABAPENTIN 100 MG CAPSULE PO SCH ×3 (08:40→21:01)
[2017-12-15] MEDS: PANTOPRAZOLE 40 MG TABLET PO SCH (08:40)
[2017-12-15] MEDS: predniSONE 10 MG TABLET PO SCH (12:21)
[2017-12-15 13:37] LABS: Allen Test Positive; Pt O2 Delivery Device Room Air
[2017-12-15 13:39] LABS: ABG Base Excess 3.5 MMOL/L (-2.5-2.5); ABG HCO3 27.3 MMOL/L (20-26); ABG Oxygen Saturation 85.9 % (95-100); ABG PCO2 40.7 MM HG (35-48); ABG PH 7.443 (7.35-7.45); ABG PO2 54.1 MM HG (80-95); ABG TCO2 24.3 MMOL/L (23-27)
[2017-12-15] MEDS: metFORMIN 850 MG TABLET PO SCH (16:49)
[2017-12-15] MEDS: ENOXAPARIN 40 MG/0.4 ML SYRINGE SUBCUT SCH (21:00)
[2017-12-15] MEDS: SERTRALINE 100 MG TABLET PO SCH (21:00)
[2017-12-15] MEDS: rOPINIRole 4 MG TABLET PO SCH (21:00)
[2017-12-15] MEDS: ATORVASTATIN 20 MG TABLET PO SCH (21:01)
[2017-12-15] MEDS: DOCUSATE SODIUM 100 MG CAPSULE PO SCH (21:01)
[2017-12-15] MEDS: TERAZOSIN 5 MG CAPSULE PO SCH (21:01)
[2017-12-16] MEDS: MEROPENEM 500 MG in SYRINGE 1 EACH IV SCH ×3 (04:56→21:23)
[2017-12-16] MEDS: predniSONE 10 MG TABLET PO SCH ×2 (06:32→13:06)
[2017-12-16] MEDS: INSULIN REGULAR 100 UNIT/ML SUBCUT SCH ×4 (07:24→21:58)
[2017-12-16] MEDS: ALBUTEROL/IPRATROPIUM 3 ML NEB RESP TX SCH ×3 (07:29→22:41)
[2017-12-16] MEDS: ASCORBIC ACID 500 MG TABLET PO SCH ×2 (08:47→21:57)
[2017-12-16] MEDS: metOLazone 2.5 MG TABLET PO SCH (08:48)
[2017-12-16] MEDS: POTASSIUM CHLORIDE 20 MEQ TABLET PO SCH ×2 (08:48→21:58)
[2017-12-16] MEDS: ASPIRIN EC 81 MG TABLET PO SCH (08:48)
[2017-12-16] MEDS: BENZONATATE 100 MG CAPSULE PO SCH ×2 (08:48→21:58)
[2017-12-16] MEDS: SPIRONOLACTONE 50 MG TABLET PO SCH (08:48)
[2017-12-16] MEDS: metFORMIN 850 MG TABLET PO SCH ×2 (08:49→16:44)
[2017-12-16] MEDS: PANTOPRAZOLE 40 MG TABLET PO SCH (08:49)
[2017-12-16] MEDS: FERROUS SULFATE 325 MG TABLET PO SCH ×4 (08:49→21:59)
[2017-12-16] MEDS: GABAPENTIN 100 MG CAPSULE PO SCH ×3 (08:49→21:58)
[2017-12-16] MEDS: FUROSEMIDE 40 MG TABLET PO SCH ×2 (08:50→16:45)
[2017-12-16] MEDS: CLOPIDOGREL 75 MG TABLET PO SCH (08:50)
[2017-12-16] MEDS: CARVEDILOL 3.125 MG TABLET PO SCH ×2 (08:50→21:58)
[2017-12-16] MEDS: DOCUSATE SODIUM 100 MG CAPSULE PO SCH (21:57)
[2017-12-16] MEDS: TERAZOSIN 5 MG CAPSULE PO SCH (21:57)
[2017-12-16] MEDS: ATORVASTATIN 20 MG TABLET PO SCH (21:57)
[2017-12-16] MEDS: ENOXAPARIN 40 MG/0.4 ML SYRINGE SUBCUT SCH (21:57)
[2017-12-16] MEDS: SERTRALINE 100 MG TABLET PO SCH (21:58)
[2017-12-16] MEDS: rOPINIRole 4 MG TABLET PO SCH (21:58)
[2017-12-17] MEDS: MEROPENEM 500 MG in SYRINGE 1 EACH IV SCH ×3 (04:16→21:48)
[2017-12-17 06:53] LABS: Basophils # 0.1 10*3/uL (0.0-0.2); Basophils % 0.6 % (0.0-0.8); Eosinophils # 0.5 10*3/uL (0.0-0.87); Hematocrit 39.4 VOL% (42.0-52.0); Hemoglobin 13.2 GM/DL (14.0-18.0); Immature Granulocytes Absolute 0.63 #; Lymphocytes # 1.2 10*3/uL (1.4-4.0); Lymphocytes % 9.7 % (21.2-54.2); Mean Corpuscular HGB Conc 33.5 GM/DL (32-36); Mean Corpuscular Hemoglobin 27 PG (27-34); Mean Corpuscular Volume 81.9 FL (87-102); Mean Platelet Volume 9.9 FL (9.6-12.0); Monocytes # 0.9 10*3/uL (0.11-0.8); Monocytes % 6.9 % (1.7-12.7); Neutrophils # 9.3 10*3/uL (1.4-7.4); Neutrophils % 73.8 % (38.7-73.9); Platelet Count 284 T/CUMM (130-400); Red Blood Count 4.81 MC/CUMM (3.8-5.5); Red Cell Distribution Width 15.6 % (9.3-17.3); White Blood Count 12.5 T/CUMM (4-12)
[2017-12-17] MEDS: ALBUTEROL/IPRATROPIUM 3 ML NEB RESP TX SCH ×3 (07:14→23:42)
[2017-12-17 07:18] LABS: Calcium 8.6 MG/DL (8.5-10.1); Osmolality,Calculated 283.8 MOS/KG (273-304); Potassium 3.6 MMOL/L (3.5-5.1)
[2017-12-17 07:20] LABS: Band Neutrophils 1 % (0-10); Eosinophils 4 % (0-10); Hypochromasia 1+; Lymphocytes 14 % (20-55); Microcytosis Slight; Segmented Neutrophils 76 % (50-85); Total Cells Counted 100
[2017-12-17 07:21] LABS: Platelet Estimate Normal
[2017-12-17] MEDS: predniSONE 10 MG TABLET PO SCH ×2 (07:30→14:08)
[2017-12-17] MEDS: INSULIN REGULAR 100 UNIT/ML SUBCUT SCH ×3 (08:31→21:49)
[2017-12-17] MEDS: metOLazone 2.5 MG TABLET PO SCH (08:47)
[2017-12-17] MEDS: POTASSIUM CHLORIDE 20 MEQ TABLET PO SCH ×2 (08:47→21:50)
[2017-12-17] MEDS: ASPIRIN EC 81 MG TABLET PO SCH (08:47)
[2017-12-17] MEDS: FUROSEMIDE 40 MG TABLET PO SCH ×2 (08:48→16:14)
[2017-12-17] MEDS: ASCORBIC ACID 500 MG TABLET PO SCH ×2 (08:49→21:51)
[2017-12-17] MEDS: GABAPENTIN 100 MG CAPSULE PO SCH ×3 (08:49→21:51)
[2017-12-17] MEDS: CLOPIDOGREL 75 MG TABLET PO SCH (08:49)
[2017-12-17] MEDS: BENZONATATE 100 MG CAPSULE PO SCH ×2 (08:49→21:50)
[2017-12-17] MEDS: PANTOPRAZOLE 40 MG TABLET PO SCH (08:50)
[2017-12-17] MEDS: FERROUS SULFATE 325 MG TABLET PO SCH ×4 (08:50→21:51)
[2017-12-17] MEDS: metFORMIN 850 MG TABLET PO SCH ×2 (08:50→16:14)
[2017-12-17] MEDS: CARVEDILOL 3.125 MG TABLET PO SCH ×2 (08:51→21:50)
[2017-12-17] MEDS: SPIRONOLACTONE 50 MG TABLET PO SCH (08:51)
[2017-12-17] MEDS: POTASSIUM CHLORIDE 20 MEQ TABLET PO PRN ×2 (10:19→12:13)
[2017-12-17] MEDS: TERAZOSIN 5 MG CAPSULE PO SCH (21:49)
[2017-12-17] MEDS: ENOXAPARIN 40 MG/0.4 ML SYRINGE SUBCUT SCH (21:49)
[2017-12-17] MEDS: DOCUSATE SODIUM 100 MG CAPSULE PO SCH (21:50)
[2017-12-17] MEDS: ATORVASTATIN 20 MG TABLET PO SCH (21:50)
[2017-12-17] MEDS: rOPINIRole 4 MG TABLET PO SCH (21:50)
[2017-12-17] MEDS: SERTRALINE 100 MG TABLET PO SCH (21:51)
[2017-12-18] MEDS: MEROPENEM 500 MG in SYRINGE 1 EACH IV SCH (04:14)
[2017-12-18] MEDS: predniSONE 10 MG TABLET PO SCH ×2 (05:48→06:25)
[2017-12-18 08:07] LABS: Calcium 8.9 MG/DL (8.5-10.1); Osmolality,Calculated 284.8 MOS/KG (273-304); Potassium 4.1 MMOL/L (3.5-5.1)
[2017-12-18 08:23] VITALS: BP 117/65
[2017-12-18] MEDS: INSULIN REGULAR 100 UNIT/ML SUBCUT SCH ×2 (08:23→11:50)
[2017-12-18] MEDS: ALBUTEROL/IPRATROPIUM 3 ML NEB RESP TX SCH (08:26)
[2017-12-18] MEDS: GABAPENTIN 100 MG CAPSULE PO SCH (08:56)
[2017-12-18] MEDS: CLOPIDOGREL 75 MG TABLET PO SCH (08:56)
[2017-12-18] MEDS: metFORMIN 850 MG TABLET PO SCH (08:56)
[2017-12-18] MEDS: POTASSIUM CHLORIDE 20 MEQ TABLET PO SCH (08:56)
[2017-12-18] MEDS: FERROUS SULFATE 325 MG TABLET PO SCH (08:56)
[2017-12-18] MEDS: SPIRONOLACTONE 50 MG TABLET PO SCH (08:56)
[2017-12-18] MEDS: ASPIRIN EC 81 MG TABLET PO SCH (08:56)
[2017-12-18] MEDS: PANTOPRAZOLE 40 MG TABLET PO SCH (08:56)
[2017-12-18] MEDS: metOLazone 2.5 MG TABLET PO SCH (08:56)
[2017-12-18] MEDS: CARVEDILOL 3.125 MG TABLET PO SCH (08:56)
[2017-12-18] MEDS: BENZONATATE 100 MG CAPSULE PO SCH (08:56)
[2017-12-18] MEDS: ASCORBIC ACID 500 MG TABLET PO SCH (08:56)
[2017-12-18] MEDS: FUROSEMIDE 40 MG TABLET PO SCH (08:56)
== END 2017-12-18 13:03 | disposition swing bed (61) | DRG 291 ==
LOC: EDBD → EDUNIT# → N.ED 12:45 → N.EDINP 17:04 → SUATTDRO 17:04 → N.EDINP 18:40 → N.5E 19:07
PROVIDERS: ADMIT Internal Medicine

== ENCOUNTER 2017-12-28 20:42 | Inpatient (IN) ==
[2017-12-28] MEDS ORDERED: FUROSEMIDE 100 MG/10 ML VIAL IV STA (21:23)
[2017-12-28] MEDS ORDERED: MORPHINE 4 MG/1 ML VIAL IV STA (21:23)
[2017-12-28] MEDS ORDERED: ASPIRIN 325 MG TABLET PO STA (21:23)
[2017-12-28] MEDS ORDERED: methylPREDNISolone SOD SUC 125 MG/2 ML VIAL IV STA (21:23)
[2017-12-28] MEDS ORDERED: ALBUTEROL 2.5 MG/3 ML NEB RESP TX SCH (21:30)
[2017-12-28 21:47] LABS: Basophils % 0.3 % (0.0-0.8); Eosinophils # 0.2 10*3/uL (0.0-0.87); Eosinophils % 1.5 % (0.00-10.9); Hematocrit 38.9 VOL% (42.0-52.0); Immature Granulocytes % 3.3 %; Immature Granulocytes Absolute 0.43 #; Lymphocytes # 0.5 10*3/uL (1.4-4.0); Lymphocytes % 3.8 % (21.2-54.2); Mean Corpuscular HGB Conc 33.4 GM/DL (32-36); Mean Corpuscular Hemoglobin 27 PG (27-34); Mean Corpuscular Volume 81.2 FL (87-102); Mean Platelet Volume 10.4 FL (9.6-12.0); Monocytes # 0.8 10*3/uL (0.11-0.8); Monocytes % 5.8 % (1.7-12.7); Neutrophils # 11.1 10*3/uL (1.4-7.4); Neutrophils % 85.3 % (38.7-73.9); Platelet Count 256 T/CUMM (130-400); Red Blood Count 4.79 MC/CUMM (3.8-5.5); Red Cell Distribution Width 15.4 % (9.3-17.3)
[2017-12-28 21:50] LABS: Alanine Aminotransferase 22 U/L (16-61); Albumin 3.6 G/DL (3.4-5.0); Alkaline Phosphatase 106 U/L (45-117); Aspartate Amino Transferase 21 U/L (0-37); Blood Urea Nitrogen 44 MG/DL (7-18); Calcium 8.4 MG/DL (8.5-10.1); Glucose 134 MG/DL (74-106); Osmolality,Calculated 254.2 MOS/KG (273-304); Potassium 5.1 MMOL/L (3.5-5.1); Total Protein 7.4 G/DL (6.4-8.3)
[2017-12-28 21:51] LABS: Lactic Acid 4.3 MMOL/L (0.4-2.0)
[2017-12-28 21:54] LABS: Sodium 120 MMOL/L (136-145)
[2017-12-28 21:56] LABS: PT Patient Result 10.1 SECS
[2017-12-28 22:04] LABS: Allen Test Positive
[2017-12-28 22:05] LABS: ABG Base Excess -2.3 MMOL/L (-2.5-2.5); ABG HCO3 21.4 MMOL/L (20-26); ABG Oxygen Saturation 97.5 % (95-100); ABG PCO2 33.5 MM HG (35-48); ABG PH 7.423 (7.35-7.45); ABG PO2 104.6 MM HG (80-95); ABG TCO2 22.4 MMOL/L (23-27)
[2017-12-28 22:44] LABS: Eosinophils 1 % (0-10); Lymphocytes 2 % (20-55); Platelet Estimate Normal; Segmented Neutrophils 92 % (50-85); Total Cells Counted 100
[2017-12-29 00:03] LABS: Apearance,Urine CLEAR (Clear); Bilirubin,Urine Negative (Negative); Blood, Urine Negative (Negative); Glucose,Urine (UA) Negative (Negative); Hyaline Casts,Urine 2 /LPF (0-3); Ketones,Urine Negative (Negative); Mucus,Urine Occasional /LPF (Occasional); Nitrite,Urine Negative (Negative); Protein,Urine Negative; Urine Color Straw (Yellow); Urine Specific Gravity 1.006 (1.001-1.035); Urine Urobilinogen < 2.0 EU/DL (0.2-1.0); WBC,Urine <1 /HPF (0-6)
[2017-12-29] MEDS: PIPERACILLIN/TAZOBACTAM 3,375 MG in SODIUM CHLORIDE 0.9% 100 ML IV SCH ×4 (00:04→21:36)
[2017-12-29] MEDS ORDERED: ZALEPLON 5 MG CAPSULE PO PRN (01:09)
[2017-12-29] MEDS ORDERED: DEXTROSE 50% 25 GM/50 ML VIAL IV PRN (01:09)
[2017-12-29] MEDS ORDERED: ONDANSETRON 4 MG/2 ML VIAL IV PRN (01:09)
[2017-12-29] MEDS ORDERED: ALBUTEROL/IPRATROPIUM 3 ML NEB RESP TX PRN ×2 (01:09→10:55)
[2017-12-29] MEDS ORDERED: PROMETHAZINE 25 MG TABLET PO PRN (01:09)
[2017-12-29] MEDS ORDERED: GLUCAGON 1 MG VIAL IM PRN (01:09)
[2017-12-29] MEDS: SERTRALINE 100 MG TABLET PO SCH ×2 (02:13→21:37)
[2017-12-29] MEDS: rOPINIRole 4 MG TABLET PO SCH ×2 (02:13→21:36)
[2017-12-29] MEDS: ALBUTEROL/IPRATROPIUM 3 ML NEB RESP TX SCH ×4 (03:01→18:52)
[2017-12-29 05:00] LABS: Basophils % 0.3 % (0.0-0.8); Hematocrit 37.6 VOL% (42.0-52.0); Hemoglobin 12.6 GM/DL (14.0-18.0); Immature Granulocytes % 4.5 %; Immature Granulocytes Absolute 0.35 #; Lymphocytes # 0.2 10*3/uL (1.4-4.0); Mean Corpuscular HGB Conc 33.5 GM/DL (32-36); Mean Corpuscular Hemoglobin 27 PG (27-34); Mean Corpuscular Volume 80.3 FL (87-102); Mean Platelet Volume 10.2 FL (9.6-12.0); Monocytes # 0.1 10*3/uL (0.11-0.8); Monocytes % 0.6 % (1.7-12.7); Neutrophils # 7.3 10*3/uL (1.4-7.4); Neutrophils % 92.6 % (38.7-73.9); Platelet Count 224 T/CUMM (130-400); Red Blood Count 4.68 MC/CUMM (3.8-5.5); Red Cell Distribution Width 15.3 % (9.3-17.3); White Blood Count 7.8 T/CUMM (4-12)
[2017-12-29 05:34] LABS: Albumin 3.4 G/DL (3.4-5.0); Calcium 8.6 MG/DL (8.5-10.1); Osmolality,Calculated 264.8 MOS/KG (273-304); Total Protein 7.2 G/DL (6.4-8.3)
[2017-12-29 05:52] LABS: Risk Ratio 2.71; VLDL CHOLESTEROL 9.8 MG/DL
[2017-12-29 05:56] LABS: Band Neutrophils 1 % (0-10); Lymphocytes 3 % (20-55); Platelet Estimate Normal; Segmented Neutrophils 95 % (50-85); Total Cells Counted 100
[2017-12-29] MEDS ORDERED: COSYNTROPIN 0.25 MG VIAL IM ONE (08:49)
[2017-12-29] MEDS ORDERED: BENZONATATE 100 MG CAPSULE PO SCH (09:00)
[2017-12-29] MEDS: FERROUS SULFATE 325 MG TABLET PO SCH ×2 (09:42→21:37)
[2017-12-29] MEDS: ASCORBIC ACID 500 MG TABLET PO SCH (09:42)
[2017-12-29] MEDS: DOCUSATE SODIUM 100 MG CAPSULE PO SCH ×2 (09:42→21:37)
[2017-12-29] MEDS: GABAPENTIN 100 MG CAPSULE PO SCH ×3 (09:43→21:47)
[2017-12-29] MEDS: PANTOPRAZOLE 40 MG TABLET PO SCH (09:43)
[2017-12-29] MEDS: ATORVASTATIN 20 MG TABLET PO SCH (09:43)
[2017-12-29] MEDS: metFORMIN 850 MG TABLET PO SCH ×2 (09:43→17:08)
[2017-12-29] MEDS: CLOPIDOGREL 75 MG TABLET PO SCH (09:43)
[2017-12-29] MEDS: LISINOPRIL 5 MG TABLET PO SCH (09:43)
[2017-12-29] MEDS: ASPIRIN EC 81 MG TABLET PO SCH (09:43)
[2017-12-29] MEDS: CARVEDILOL 3.125 MG TABLET PO SCH ×2 (09:43→21:37)
[2017-12-29] MEDS: INSULIN REGULAR 100 UNIT/ML SUBCUT SCH ×4 (09:44→21:36)
[2017-12-29] MEDS: ENOXAPARIN 40 MG/0.4 ML SYRINGE SUBCUT SCH (09:44)
[2017-12-29] MEDS: methylPREDNISolone SOD SUC 40 MG/1 ML VIAL IV SCH ×2 (11:52→21:38)
[2017-12-29] MEDS: DORNASE ALFA 2.5 MG/2.5 ML VIAL RESP TX SCH ×2 (15:16→18:53)
[2017-12-29] MEDS: BENZONATATE 100 MG CAPSULE PO SCH ×2 (15:23→21:37)
[2017-12-29] MEDS: TERAZOSIN 10 MG CAPSULE PO SCH (21:37)
[2017-12-30] MEDS: ALBUTEROL/IPRATROPIUM 3 ML NEB RESP TX SCH ×4 (01:20→19:19)
[2017-12-30 05:36] LABS: Basophils % 0.2 % (0.0-0.8); Hematocrit 35.5 VOL% (42.0-52.0); Hemoglobin 12.2 GM/DL (14.0-18.0); Immature Granulocytes % 2.2 %; Immature Granulocytes Absolute 0.25 #; Lymphocytes # 0.2 10*3/uL (1.4-4.0); Lymphocytes % 1.8 % (21.2-54.2); Mean Corpuscular HGB Conc 34.4 GM/DL (32-36); Mean Corpuscular Hemoglobin 27 PG (27-34); Mean Corpuscular Volume 79.2 FL (87-102); Mean Platelet Volume 10.1 FL (9.6-12.0); Monocytes # 0.4 10*3/uL (0.11-0.8); Monocytes % 3.5 % (1.7-12.7); Neutrophils # 10.7 10*3/uL (1.4-7.4); Neutrophils % 92.3 % (38.7-73.9); Platelet Count 216 T/CUMM (130-400); Red Blood Count 4.48 MC/CUMM (3.8-5.5); Red Cell Distribution Width 15.7 % (9.3-17.3); White Blood Count 11.6 T/CUMM (4-12)
[2017-12-30 06:09] LABS: Eosinophils 1 % (0-10); Hypochromasia 1+; Lymphocytes 2 % (20-55); Ovalocytes Slight; Platelet Estimate Adequate; Segmented Neutrophils 95 % (50-85); Total Cells Counted 100
[2017-12-30 06:10] LABS: Albumin 3.2 G/DL (3.4-5.0); Bilirubin,Total 1.3 MG/DL (0.2-1.0); Calcium 8.6 MG/DL (8.5-10.1); Osmolality,Calculated 273.8 MOS/KG (273-304); Potassium 4.9 MMOL/L (3.5-5.1); Total Protein 6.8 G/DL (6.4-8.3)
[2017-12-30] MEDS: PIPERACILLIN/TAZOBACTAM 3,375 MG in SODIUM CHLORIDE 0.9% 100 ML IV SCH ×3 (06:46→23:23)
[2017-12-30] MEDS: DORNASE ALFA 2.5 MG/2.5 ML VIAL RESP TX SCH ×2 (07:44→19:26)
[2017-12-30] MEDS: ENOXAPARIN 40 MG/0.4 ML SYRINGE SUBCUT SCH (09:30)
[2017-12-30] MEDS: BENZONATATE 100 MG CAPSULE PO SCH ×3 (09:30→21:36)
[2017-12-30] MEDS: ASCORBIC ACID 500 MG TABLET PO SCH (09:30)
[2017-12-30] MEDS: PANTOPRAZOLE 40 MG TABLET PO SCH (09:31)
[2017-12-30] MEDS: FERROUS SULFATE 325 MG TABLET PO SCH ×2 (09:31→21:36)
[2017-12-30] MEDS: ASPIRIN EC 81 MG TABLET PO SCH (09:31)
[2017-12-30] MEDS: GABAPENTIN 100 MG CAPSULE PO SCH ×3 (09:31→21:36)
[2017-12-30] MEDS: DOCUSATE SODIUM 100 MG CAPSULE PO SCH ×2 (09:31→21:36)
[2017-12-30] MEDS: CLOPIDOGREL 75 MG TABLET PO SCH (09:31)
[2017-12-30] MEDS: LISINOPRIL 5 MG TABLET PO SCH (09:31)
[2017-12-30] MEDS: ATORVASTATIN 20 MG TABLET PO SCH (09:31)
[2017-12-30] MEDS: metFORMIN 850 MG TABLET PO SCH ×2 (09:31→16:56)
[2017-12-30] MEDS: CARVEDILOL 3.125 MG TABLET PO SCH ×2 (09:31→21:36)
[2017-12-30] MEDS: methylPREDNISolone SOD SUC 40 MG/1 ML VIAL IV SCH ×2 (09:32→23:20)
[2017-12-30] MEDS: INSULIN REGULAR 100 UNIT/ML SUBCUT SCH ×4 (10:14→21:35)
[2017-12-30] MEDS: TERAZOSIN 10 MG CAPSULE PO SCH (21:35)
[2017-12-30] MEDS: rOPINIRole 4 MG TABLET PO SCH (21:36)
[2017-12-30] MEDS: SERTRALINE 100 MG TABLET PO SCH (21:42)
[2017-12-31] MEDS: ALBUTEROL/IPRATROPIUM 3 ML NEB RESP TX SCH ×3 (00:22→13:10)
[2017-12-31 03:58] LABS: Basophils % 0.2 % (0.0-0.8); Eosinophils % 0.1 % (0.00-10.9); Hematocrit 35.8 VOL% (42.0-52.0); Hemoglobin 12.5 GM/DL (14.0-18.0); Immature Granulocytes % 3.3 %; Immature Granulocytes Absolute 0.65 #; Lymphocytes # 0.2 10*3/uL (1.4-4.0); Lymphocytes % 1.1 % (21.2-54.2); Mean Corpuscular HGB Conc 34.9 GM/DL (32-36); Mean Corpuscular Hemoglobin 28 PG (27-34); Mean Corpuscular Volume 80.1 FL (87-102); Mean Platelet Volume 10.4 FL (9.6-12.0); Monocytes # 0.7 10*3/uL (0.11-0.8); Monocytes % 3.6 % (1.7-12.7); Neutrophils # 18.2 10*3/uL (1.4-7.4); Neutrophils % 91.7 % (38.7-73.9); Platelet Count 218 T/CUMM (130-400); Red Blood Count 4.47 MC/CUMM (3.8-5.5); White Blood Count 19.8 T/CUMM (4-12)
[2017-12-31 04:25] LABS: Albumin 3.4 G/DL (3.4-5.0); Bilirubin,Total 0.7 MG/DL (0.2-1.0); Calcium 8.8 MG/DL (8.5-10.1); Osmolality,Calculated 277.2 MOS/KG (273-304); Potassium 4.9 MMOL/L (3.5-5.1); Total Protein 6.9 G/DL (6.4-8.3)
[2017-12-31 05:17] LABS: Hypochromasia 1+; Ovalocytes Slight; Platelet Estimate Adequate; Segmented Neutrophils 98 % (50-85); Total Cells Counted 100
[2017-12-31] MEDS: DORNASE ALFA 2.5 MG/2.5 ML VIAL RESP TX SCH ×2 (07:08→19:55)
[2017-12-31] MEDS: PIPERACILLIN/TAZOBACTAM 3,375 MG in SODIUM CHLORIDE 0.9% 100 ML IV SCH ×3 (07:14→22:29)
[2017-12-31] MEDS ORDERED: AZTREONAM 2,000 MG in SODIUM CHLORIDE 0.9% 100 ML IV SCH (09:30)
[2017-12-31] MEDS ORDERED: FUROSEMIDE 40 MG/4 ML VIAL IV ONE ×2 (09:47→17:28)
[2017-12-31] MEDS: DOCUSATE SODIUM 100 MG CAPSULE PO SCH ×2 (10:25→22:24)
[2017-12-31] MEDS: metFORMIN 850 MG TABLET PO SCH ×2 (10:25→17:49)
[2017-12-31] MEDS: CLOPIDOGREL 75 MG TABLET PO SCH (10:25)
[2017-12-31] MEDS: ATORVASTATIN 20 MG TABLET PO SCH (10:25)
[2017-12-31] MEDS: INSULIN REGULAR 100 UNIT/ML SUBCUT SCH ×4 (10:25→22:28)
[2017-12-31] MEDS: GABAPENTIN 100 MG CAPSULE PO SCH ×3 (10:25→22:25)
[2017-12-31] MEDS: ASPIRIN EC 81 MG TABLET PO SCH (10:25)
[2017-12-31] MEDS: LISINOPRIL 5 MG TABLET PO SCH (10:25)
[2017-12-31] MEDS: FERROUS SULFATE 325 MG TABLET PO SCH ×2 (10:25→22:25)
[2017-12-31] MEDS: CARVEDILOL 3.125 MG TABLET PO SCH ×2 (10:25→22:25)
[2017-12-31] MEDS: ENOXAPARIN 40 MG/0.4 ML SYRINGE SUBCUT SCH (10:25)
[2017-12-31] MEDS: ASCORBIC ACID 500 MG TABLET PO SCH (10:25)
[2017-12-31] MEDS: PANTOPRAZOLE 40 MG TABLET PO SCH (10:25)
[2017-12-31] MEDS: BENZONATATE 100 MG CAPSULE PO SCH ×3 (10:25→22:24)
[2017-12-31 10:52] LABS: Lactic Acid 4.3 MMOL/L (0.4-2.0)
[2017-12-31] MEDS: methylPREDNISolone SOD SUC 40 MG/1 ML VIAL IV SCH ×2 (12:57→17:53)
[2017-12-31] MEDS: LINEZOLID INJ 600 MG in PREMIX 1 EACH IV SCH (15:27)
[2017-12-31] MEDS: SERTRALINE 100 MG TABLET PO SCH (22:25)
[2017-12-31] MEDS: TERAZOSIN 10 MG CAPSULE PO SCH (22:28)
[2017-12-31] MEDS: rOPINIRole 4 MG TABLET PO SCH (22:28)
[2018-01-01] MEDS: methylPREDNISolone SOD SUC 40 MG/1 ML VIAL IV SCH ×5 (01:40→23:35)
[2018-01-01] MEDS: LINEZOLID INJ 600 MG in PREMIX 1 EACH IV SCH ×2 (02:38→13:06)
[2018-01-01 04:39] LABS: Basophils % 0.1 % (0.0-0.8); Hematocrit 35.7 VOL% (42.0-52.0); Hemoglobin 11.7 GM/DL (14.0-18.0); Immature Granulocytes % 1.7 %; Lymphocytes # 0.2 10*3/uL (1.4-4.0); Lymphocytes % 1.2 % (21.2-54.2); Mean Corpuscular HGB Conc 32.8 GM/DL (32-36); Mean Corpuscular Hemoglobin 27 PG (27-34); Mean Corpuscular Volume 82.8 FL (87-102); Mean Platelet Volume 10.2 FL (9.6-12.0); Monocytes # 0.8 10*3/uL (0.11-0.8); Monocytes % 4.2 % (1.7-12.7); Neutrophils # 16.8 10*3/uL (1.4-7.4); Neutrophils % 92.8 % (38.7-73.9); Platelet Count 217 T/CUMM (130-400); Red Blood Count 4.31 MC/CUMM (3.8-5.5); Red Cell Distribution Width 16.1 % (9.3-17.3); White Blood Count 18.1 T/CUMM (4-12)
[2018-01-01 05:14] LABS: Calcium 8.7 MG/DL (8.5-10.1); Osmolality,Calculated 276.2 MOS/KG (273-304); Potassium 4.3 MMOL/L (3.5-5.1)
[2018-01-01 05:34] LABS: Band Neutrophils 1 % (0-10); Lymphocytes 3 % (20-55); Segmented Neutrophils 92 % (50-85); Total Cells Counted 100
[2018-01-01 05:35] LABS: Hypochromasia 1+; Microcytosis 1+; Ovalocytes Slight
[2018-01-01 05:36] LABS: Platelet Estimate Normal
[2018-01-01] MEDS: PIPERACILLIN/TAZOBACTAM 3,375 MG in SODIUM CHLORIDE 0.9% 100 ML IV SCH ×3 (06:42→22:11)
[2018-01-01] MEDS: DORNASE ALFA 2.5 MG/2.5 ML VIAL RESP TX SCH ×2 (07:40→19:14)
[2018-01-01] MEDS: ASCORBIC ACID 500 MG TABLET PO SCH (08:33)
[2018-01-01] MEDS: ASPIRIN EC 81 MG TABLET PO SCH (08:33)
[2018-01-01] MEDS: FERROUS SULFATE 325 MG TABLET PO SCH ×2 (08:33→20:47)
[2018-01-01] MEDS: LISINOPRIL 5 MG TABLET PO SCH (08:33)
[2018-01-01] MEDS: metFORMIN 850 MG TABLET PO SCH ×2 (08:33→17:24)
[2018-01-01] MEDS: GABAPENTIN 100 MG CAPSULE PO SCH ×3 (08:33→20:47)
[2018-01-01] MEDS: ATORVASTATIN 20 MG TABLET PO SCH (08:33)
[2018-01-01] MEDS: CARVEDILOL 3.125 MG TABLET PO SCH ×2 (08:33→20:47)
[2018-01-01] MEDS: CLOPIDOGREL 75 MG TABLET PO SCH (08:34)
[2018-01-01] MEDS: BENZONATATE 100 MG CAPSULE PO SCH ×3 (08:34→20:46)
[2018-01-01] MEDS: ENOXAPARIN 40 MG/0.4 ML SYRINGE SUBCUT SCH (08:34)
[2018-01-01] MEDS: PANTOPRAZOLE 40 MG TABLET PO SCH (08:34)
[2018-01-01] MEDS: DOCUSATE SODIUM 100 MG CAPSULE PO SCH ×2 (08:34→20:47)
[2018-01-01] MEDS: INSULIN REGULAR 100 UNIT/ML SUBCUT SCH ×4 (08:34→22:10)
[2018-01-01] MEDS: TERAZOSIN 10 MG CAPSULE PO SCH (20:47)
[2018-01-01] MEDS: SERTRALINE 100 MG TABLET PO SCH (20:47)
[2018-01-01] MEDS: rOPINIRole 4 MG TABLET PO SCH (20:47)
[2018-01-01] MEDS: guaiFENesin 200 MG/10 ML UDCUP PO PRN (23:39)
[2018-01-02] MEDS: LINEZOLID INJ 600 MG in PREMIX 1 EACH IV SCH ×3 (00:42→23:20)
[2018-01-02 05:32] LABS: Basophils % 0.1 % (0.0-0.8); Hematocrit 33.2 VOL% (42.0-52.0); Hemoglobin 11.3 GM/DL (14.0-18.0); Immature Granulocytes % 1.4 %; Immature Granulocytes Absolute 0.23 #; Lymphocytes # 0.4 10*3/uL (1.4-4.0); Lymphocytes % 2.4 % (21.2-54.2); Mean Corpuscular Hemoglobin 28 PG (27-34); Mean Platelet Volume 10.1 FL (9.6-12.0); Monocytes # 0.7 10*3/uL (0.11-0.8); Monocytes % 4.3 % (1.7-12.7); Neutrophils # 14.7 10*3/uL (1.4-7.4); Neutrophils % 91.8 % (38.7-73.9); Platelet Count 212 T/CUMM (130-400); Red Cell Distribution Width 16.4 % (9.3-17.3)
[2018-01-02] MEDS: methylPREDNISolone SOD SUC 40 MG/1 ML VIAL IV SCH ×4 (05:42→23:18)
[2018-01-02] MEDS: PIPERACILLIN/TAZOBACTAM 3,375 MG in SODIUM CHLORIDE 0.9% 100 ML IV SCH (05:44)
[2018-01-02 06:05] LABS: Hypochromasia 1+; Ovalocytes Slight; Platelet Estimate Adequate; Segmented Neutrophils 96 % (50-85); Total Cells Counted 100
[2018-01-02 06:06] LABS: Calcium 8.7 MG/DL (8.5-10.1); Microcytosis Slight; Potassium 4.4 MMOL/L (3.5-5.1)
[2018-01-02] MEDS: DORNASE ALFA 2.5 MG/2.5 ML VIAL RESP TX SCH ×2 (07:10→19:20)
[2018-01-02] MEDS: PANTOPRAZOLE 40 MG TABLET PO SCH (08:20)
[2018-01-02] MEDS: CLOPIDOGREL 75 MG TABLET PO SCH (08:20)
[2018-01-02] MEDS: FERROUS SULFATE 325 MG TABLET PO SCH ×2 (08:20→21:16)
[2018-01-02] MEDS: ASCORBIC ACID 500 MG TABLET PO SCH (08:21)
[2018-01-02] MEDS: ATORVASTATIN 20 MG TABLET PO SCH (08:21)
[2018-01-02] MEDS: LISINOPRIL 5 MG TABLET PO SCH (08:21)
[2018-01-02] MEDS: GABAPENTIN 100 MG CAPSULE PO SCH ×3 (08:21→21:15)
[2018-01-02] MEDS: ASPIRIN EC 81 MG TABLET PO SCH (08:21)
[2018-01-02] MEDS: ENOXAPARIN 40 MG/0.4 ML SYRINGE SUBCUT SCH (08:21)
[2018-01-02] MEDS: metFORMIN 850 MG TABLET PO SCH ×2 (08:21→16:32)
[2018-01-02] MEDS: DOCUSATE SODIUM 100 MG CAPSULE PO SCH ×2 (08:21→21:15)
[2018-01-02] MEDS: BENZONATATE 100 MG CAPSULE PO SCH ×3 (08:21→21:15)
[2018-01-02] MEDS: CARVEDILOL 3.125 MG TABLET PO SCH ×2 (08:21→21:15)
[2018-01-02] MEDS: INSULIN REGULAR 100 UNIT/ML SUBCUT SCH ×4 (08:25→21:16)
[2018-01-02] MEDS: FUROSEMIDE 20 MG/2 ML VIAL IV SCH (11:45)
[2018-01-02] MEDS: MEROPENEM 1,000 MG in SYRINGE 1 EACH IV SCH ×2 (11:47→18:12)
[2018-01-02] MEDS: POTASSIUM CHLORIDE 20 MEQ TABLET PO SCH (11:50)
[2018-01-02] MEDS: FLUCONAZOLE INJ 100 MG in IV BAG 1 EACH IV SCH (13:51)
[2018-01-02] MEDS: rOPINIRole 4 MG TABLET PO SCH (21:15)
[2018-01-02] MEDS: SERTRALINE 100 MG TABLET PO SCH (21:15)
[2018-01-02] MEDS: TERAZOSIN 10 MG CAPSULE PO SCH (21:15)
[2018-01-03] MEDS: MEROPENEM 1,000 MG in SYRINGE 1 EACH IV SCH ×4 (03:18→18:31)
[2018-01-03 04:52] LABS: Basophils % 0.1 % (0.0-0.8); Hematocrit 33.5 VOL% (42.0-52.0); Hemoglobin 11.4 GM/DL (14.0-18.0); Immature Granulocytes % 1.5 %; Immature Granulocytes Absolute 0.22 #; Lymphocytes # 0.3 10*3/uL (1.4-4.0); Lymphocytes % 2.3 % (21.2-54.2); Mean Corpuscular Hemoglobin 28 PG (27-34); Mean Corpuscular Volume 81.5 FL (87-102); Mean Platelet Volume 10.5 FL (9.6-12.0); Monocytes # 0.5 10*3/uL (0.11-0.8); Monocytes % 3.6 % (1.7-12.7); Neutrophils # 13.3 10*3/uL (1.4-7.4); Neutrophils % 92.5 % (38.7-73.9); Platelet Count 223 T/CUMM (130-400); Red Blood Count 4.11 MC/CUMM (3.8-5.5); Red Cell Distribution Width 16.9 % (9.3-17.3); White Blood Count 14.4 T/CUMM (4-12)
[2018-01-03 05:20] LABS: Band Neutrophils 1 % (0-10); Hypochromasia 1+; Lymphocytes 1 % (20-55); Metamyelocytes 1 %; Microcytosis 1+; Platelet Estimate Normal; Segmented Neutrophils 95 % (50-85); Total Cells Counted 100
[2018-01-03 05:24] LABS: Calcium 8.5 MG/DL (8.5-10.1); Potassium 4.7 MMOL/L (3.5-5.1)
[2018-01-03] MEDS: methylPREDNISolone SOD SUC 40 MG/1 ML VIAL IV SCH ×3 (05:34→17:41)
[2018-01-03] MEDS: DORNASE ALFA 2.5 MG/2.5 ML VIAL RESP TX SCH ×2 (07:30→19:13)
[2018-01-03] MEDS: INSULIN REGULAR 100 UNIT/ML SUBCUT SCH ×4 (07:42→21:25)
[2018-01-03] MEDS: ENOXAPARIN 40 MG/0.4 ML SYRINGE SUBCUT SCH (08:37)
[2018-01-03] MEDS: metFORMIN 850 MG TABLET PO SCH ×2 (08:38→17:41)
[2018-01-03] MEDS: BENZONATATE 100 MG CAPSULE PO SCH ×3 (08:38→21:25)
[2018-01-03] MEDS: FUROSEMIDE 20 MG/2 ML VIAL IV SCH ×4 (08:38→21:25)
[2018-01-03] MEDS: FERROUS SULFATE 325 MG TABLET PO SCH ×2 (08:39→21:25)
[2018-01-03] MEDS: GABAPENTIN 100 MG CAPSULE PO SCH ×3 (08:39→21:25)
[2018-01-03] MEDS: ATORVASTATIN 20 MG TABLET PO SCH (08:39)
[2018-01-03] MEDS: ASPIRIN EC 81 MG TABLET PO SCH (08:39)
[2018-01-03] MEDS: ASCORBIC ACID 500 MG TABLET PO SCH (08:39)
[2018-01-03] MEDS: CLOPIDOGREL 75 MG TABLET PO SCH (08:39)
[2018-01-03] MEDS: DOCUSATE SODIUM 100 MG CAPSULE PO SCH ×2 (08:39→21:25)
[2018-01-03] MEDS: LISINOPRIL 5 MG TABLET PO SCH (08:39)
[2018-01-03] MEDS: PANTOPRAZOLE 40 MG TABLET PO SCH (08:40)
[2018-01-03] MEDS: CARVEDILOL 3.125 MG TABLET PO SCH ×2 (08:40→21:25)
[2018-01-03] MEDS: POTASSIUM CHLORIDE 20 MEQ TABLET PO SCH (08:40)
[2018-01-03] MEDS: LINEZOLID INJ 600 MG in PREMIX 1 EACH IV SCH (12:23)
[2018-01-03] MEDS: FLUCONAZOLE INJ 100 MG in IV BAG 1 EACH IV SCH (14:27)
[2018-01-03] MEDS: TERAZOSIN 10 MG CAPSULE PO SCH (21:25)
[2018-01-03] MEDS: SERTRALINE 100 MG TABLET PO SCH (21:25)
[2018-01-03] MEDS: rOPINIRole 4 MG TABLET PO SCH (21:25)
[2018-01-04] MEDS: methylPREDNISolone SOD SUC 40 MG/1 ML VIAL IV SCH ×5 (00:35→23:54)
[2018-01-04] MEDS: LINEZOLID INJ 600 MG in PREMIX 1 EACH IV SCH ×3 (00:56→23:56)
[2018-01-04] MEDS: MEROPENEM 1,000 MG in SYRINGE 1 EACH IV SCH ×3 (03:18→18:03)
[2018-01-04 05:42] LABS: Basophils % 0.1 % (0.0-0.8); Eosinophils % 0.1 % (0.00-10.9); Hematocrit 35.5 VOL% (42.0-52.0); Hemoglobin 11.8 GM/DL (14.0-18.0); Immature Granulocytes % 1.3 %; Immature Granulocytes Absolute 0.19 #; Lymphocytes # 0.3 10*3/uL (1.4-4.0); Lymphocytes % 2.4 % (21.2-54.2); Mean Corpuscular HGB Conc 33.2 GM/DL (32-36); Mean Corpuscular Hemoglobin 28 PG (27-34); Mean Corpuscular Volume 82.9 FL (87-102); Mean Platelet Volume 10.3 FL (9.6-12.0); Monocytes # 0.5 10*3/uL (0.11-0.8); Monocytes % 3.7 % (1.7-12.7); Neutrophils # 13.1 10*3/uL (1.4-7.4); Neutrophils % 92.4 % (38.7-73.9); Platelet Count 237 T/CUMM (130-400); Red Blood Count 4.28 MC/CUMM (3.8-5.5); Red Cell Distribution Width 17.2 % (9.3-17.3); White Blood Count 14.2 T/CUMM (4-12)
[2018-01-04 06:08] LABS: Hypochromasia 1+; Lymphocytes 7 % (20-55); Microcytosis 1+; Ovalocytes Slight; Platelet Estimate Normal; Segmented Neutrophils 89 % (50-85); Total Cells Counted 100
[2018-01-04 06:14] LABS: Calcium 8.8 MG/DL (8.5-10.1); Osmolality,Calculated 292.7 MOS/KG (273-304); Potassium 5.1 MMOL/L (3.5-5.1)
[2018-01-04] MEDS: DORNASE ALFA 2.5 MG/2.5 ML VIAL RESP TX SCH ×2 (07:10→19:21)
[2018-01-04] MEDS: FUROSEMIDE 20 MG/2 ML VIAL IV SCH (09:34)
[2018-01-04] MEDS: ENOXAPARIN 40 MG/0.4 ML SYRINGE SUBCUT SCH (09:34)
[2018-01-04] MEDS: BENZONATATE 100 MG CAPSULE PO SCH ×3 (09:35→21:21)
[2018-01-04] MEDS: ASPIRIN EC 81 MG TABLET PO SCH (09:35)
[2018-01-04] MEDS: GABAPENTIN 100 MG CAPSULE PO SCH ×3 (09:35→21:21)
[2018-01-04] MEDS: CLOPIDOGREL 75 MG TABLET PO SCH (09:35)
[2018-01-04] MEDS: POTASSIUM CHLORIDE 20 MEQ TABLET PO SCH (09:35)
[2018-01-04] MEDS: FERROUS SULFATE 325 MG TABLET PO SCH ×2 (09:35→21:22)
[2018-01-04] MEDS: ASCORBIC ACID 500 MG TABLET PO SCH (09:35)
[2018-01-04] MEDS: DOCUSATE SODIUM 100 MG CAPSULE PO SCH ×2 (09:36→21:22)
[2018-01-04] MEDS: metFORMIN 850 MG TABLET PO SCH (09:36)
[2018-01-04] MEDS: INSULIN REGULAR 100 UNIT/ML SUBCUT SCH ×4 (09:36→21:24)
[2018-01-04] MEDS: ATORVASTATIN 20 MG TABLET PO SCH (09:36)
[2018-01-04] MEDS: PANTOPRAZOLE 40 MG TABLET PO SCH (09:36)
[2018-01-04] MEDS: CARVEDILOL 3.125 MG TABLET PO SCH ×2 (09:36→21:22)
[2018-01-04] MEDS: FLUCONAZOLE INJ 100 MG in IV BAG 1 EACH IV SCH (12:46)
[2018-01-04] MEDS: rOPINIRole 4 MG TABLET PO SCH (21:21)
[2018-01-04] MEDS: TERAZOSIN 10 MG CAPSULE PO SCH (21:21)
[2018-01-04] MEDS: SERTRALINE 100 MG TABLET PO SCH (21:22)
[2018-01-05] MEDS: MEROPENEM 1,000 MG in SYRINGE 1 EACH IV SCH ×3 (03:15→18:08)
[2018-01-05] MEDS: methylPREDNISolone SOD SUC 40 MG/1 ML VIAL IV SCH ×3 (06:18→17:15)
[2018-01-05 07:34] LABS: Basophils % 0.1 % (0.0-0.8); Hematocrit 36.2 VOL% (42.0-52.0); Hemoglobin 12.1 GM/DL (14.0-18.0); Immature Granulocytes Absolute 0.12 #; Lymphocytes # 0.5 10*3/uL (1.4-4.0); Lymphocytes % 4.2 % (21.2-54.2); Mean Corpuscular HGB Conc 33.4 GM/DL (32-36); Mean Corpuscular Hemoglobin 28 PG (27-34); Mean Corpuscular Volume 82.5 FL (87-102); Mean Platelet Volume 9.4 FL (9.6-12.0); Monocytes # 0.6 10*3/uL (0.11-0.8); Monocytes % 4.9 % (1.7-12.7); Neutrophils # 10.7 10*3/uL (1.4-7.4); Neutrophils % 89.8 % (38.7-73.9); Platelet Count 226 T/CUMM (130-400); Red Blood Count 4.39 MC/CUMM (3.8-5.5); White Blood Count 11.9 T/CUMM (4-12)
[2018-01-05 08:03] LABS: Calcium 8.7 MG/DL (8.5-10.1); Osmolality,Calculated 293.7 MOS/KG (273-304)
[2018-01-05] MEDS: DORNASE ALFA 2.5 MG/2.5 ML VIAL RESP TX SCH ×2 (08:09→20:29)
[2018-01-05 08:11] LABS: Platelet Estimate Normal
[2018-01-05 08:12] LABS: Anisocytosis Slight
[2018-01-05] MEDS: ASCORBIC ACID 500 MG TABLET PO SCH (08:33)
[2018-01-05] MEDS: ASPIRIN EC 81 MG TABLET PO SCH (08:34)
[2018-01-05] MEDS: ATORVASTATIN 20 MG TABLET PO SCH (08:34)
[2018-01-05] MEDS: GABAPENTIN 100 MG CAPSULE PO SCH ×3 (08:34→20:59)
[2018-01-05] MEDS: CLOPIDOGREL 75 MG TABLET PO SCH (08:34)
[2018-01-05] MEDS: PANTOPRAZOLE 40 MG TABLET PO SCH (08:34)
[2018-01-05] MEDS: CARVEDILOL 3.125 MG TABLET PO SCH ×2 (08:34→20:59)
[2018-01-05] MEDS: POTASSIUM CHLORIDE 20 MEQ TABLET PO SCH (08:34)
[2018-01-05] MEDS: FERROUS SULFATE 325 MG TABLET PO SCH ×2 (08:34→20:59)
[2018-01-05] MEDS: ENOXAPARIN 40 MG/0.4 ML SYRINGE SUBCUT SCH (08:35)
[2018-01-05] MEDS: INSULIN REGULAR 100 UNIT/ML SUBCUT SCH ×4 (08:41→21:04)
[2018-01-05] MEDS: BENZONATATE 100 MG CAPSULE PO SCH ×3 (08:41→20:59)
[2018-01-05] MEDS: DOCUSATE SODIUM 100 MG CAPSULE PO SCH ×2 (08:41→20:59)
[2018-01-05] MEDS: FLUCONAZOLE INJ 100 MG in IV BAG 1 EACH IV SCH (11:47)
[2018-01-05] MEDS: LINEZOLID INJ 600 MG in PREMIX 1 EACH IV SCH (12:21)
[2018-01-05] MEDS: FUROSEMIDE 20 MG/2 ML VIAL IV SCH (17:17)
[2018-01-05] MEDS: TERAZOSIN 10 MG CAPSULE PO SCH (20:59)
[2018-01-05] MEDS: SERTRALINE 100 MG TABLET PO SCH (20:59)
[2018-01-05] MEDS: rOPINIRole 4 MG TABLET PO SCH (21:03)
[2018-01-06] MEDS: methylPREDNISolone SOD SUC 40 MG/1 ML VIAL IV SCH ×4 (00:03→18:00)
[2018-01-06] MEDS: LINEZOLID INJ 600 MG in PREMIX 1 EACH IV SCH ×2 (00:06→14:19)
[2018-01-06] MEDS: MEROPENEM 1,000 MG in SYRINGE 1 EACH IV SCH ×3 (03:05→18:05)
[2018-01-06] MEDS: DORNASE ALFA 2.5 MG/2.5 ML VIAL RESP TX SCH ×2 (08:24→20:01)
[2018-01-06] MEDS: FUROSEMIDE 20 MG/2 ML VIAL IV SCH ×2 (09:13→15:45)
[2018-01-06] MEDS: ENOXAPARIN 40 MG/0.4 ML SYRINGE SUBCUT SCH (09:13)
[2018-01-06] MEDS: DOCUSATE SODIUM 100 MG CAPSULE PO SCH ×2 (09:13→20:47)
[2018-01-06] MEDS: ASCORBIC ACID 500 MG TABLET PO SCH (09:13)
[2018-01-06] MEDS: POTASSIUM CHLORIDE 20 MEQ TABLET PO SCH (09:13)
[2018-01-06] MEDS: BENZONATATE 100 MG CAPSULE PO SCH ×3 (09:14→20:46)
[2018-01-06] MEDS: PANTOPRAZOLE 40 MG TABLET PO SCH (09:14)
[2018-01-06] MEDS: ATORVASTATIN 20 MG TABLET PO SCH (09:14)
[2018-01-06] MEDS: ASPIRIN EC 81 MG TABLET PO SCH (09:14)
[2018-01-06] MEDS: CLOPIDOGREL 75 MG TABLET PO SCH (09:14)
[2018-01-06] MEDS: GABAPENTIN 100 MG CAPSULE PO SCH ×3 (09:14→20:46)
[2018-01-06] MEDS: CARVEDILOL 3.125 MG TABLET PO SCH ×2 (09:14→20:46)
[2018-01-06] MEDS: FERROUS SULFATE 325 MG TABLET PO SCH ×2 (09:14→20:46)
[2018-01-06] MEDS: INSULIN REGULAR 100 UNIT/ML SUBCUT SCH ×4 (09:19→21:11)
[2018-01-06] MEDS: FLUCONAZOLE INJ 100 MG in IV BAG 1 EACH IV SCH (13:55)
[2018-01-06] MEDS: guaiFENesin 200 MG/10 ML UDCUP PO PRN (20:45)
[2018-01-06] MEDS: rOPINIRole 4 MG TABLET PO SCH (20:46)
[2018-01-06] MEDS: SERTRALINE 100 MG TABLET PO SCH (20:47)
[2018-01-06] MEDS: TERAZOSIN 10 MG CAPSULE PO SCH (20:47)
[2018-01-07] MEDS: methylPREDNISolone SOD SUC 40 MG/1 ML VIAL IV SCH ×4 (00:08→18:18)
[2018-01-07] MEDS: LINEZOLID INJ 600 MG in PREMIX 1 EACH IV SCH ×2 (00:10→13:30)
[2018-01-07] MEDS: MEROPENEM 1,000 MG in SYRINGE 1 EACH IV SCH ×3 (03:36→18:18)
[2018-01-07 08:16] LABS: Basophils % 0.1 % (0.0-0.8); Hematocrit 36.5 VOL% (42.0-52.0); Hemoglobin 12.3 GM/DL (14.0-18.0); Immature Granulocytes % 1.9 %; Immature Granulocytes Absolute 0.22 #; Lymphocytes # 0.3 10*3/uL (1.4-4.0); Lymphocytes % 2.8 % (21.2-54.2); Mean Corpuscular HGB Conc 33.7 GM/DL (32-36); Mean Corpuscular Hemoglobin 27 PG (27-34); Mean Corpuscular Volume 80.9 FL (87-102); Mean Platelet Volume 10.2 FL (9.6-12.0); Monocytes # 0.4 10*3/uL (0.11-0.8); Monocytes % 3.5 % (1.7-12.7); Neutrophils # 10.7 10*3/uL (1.4-7.4); Neutrophils % 91.7 % (38.7-73.9); Platelet Count 214 T/CUMM (130-400); Red Blood Count 4.51 MC/CUMM (3.8-5.5); Red Cell Distribution Width 16.3 % (9.3-17.3); White Blood Count 11.7 T/CUMM (4-12)
[2018-01-07 08:51] LABS: Band Neutrophils 2 % (0-10); Lymphocytes 4 % (20-55); Segmented Neutrophils 92 % (50-85); Total Cells Counted 100
[2018-01-07 08:56] LABS: Platelet Estimate Normal
[2018-01-07 09:00] LABS: Calcium 8.3 MG/DL (8.5-10.1); Osmolality,Calculated 281.2 MOS/KG (273-304)
[2018-01-07 09:06] LABS: Hypochromasia Slight
[2018-01-07 09:07] LABS: Microcytosis Slight
[2018-01-07] MEDS: DORNASE ALFA 2.5 MG/2.5 ML VIAL RESP TX SCH ×2 (09:18→19:58)
[2018-01-07] MEDS: CLOPIDOGREL 75 MG TABLET PO SCH (09:56)
[2018-01-07] MEDS: BENZONATATE 100 MG CAPSULE PO SCH ×3 (09:56→20:46)
[2018-01-07] MEDS: ASCORBIC ACID 500 MG TABLET PO SCH (09:57)
[2018-01-07] MEDS: POTASSIUM CHLORIDE 20 MEQ TABLET PO SCH (09:57)
[2018-01-07] MEDS: ATORVASTATIN 20 MG TABLET PO SCH (09:57)
[2018-01-07] MEDS: FERROUS SULFATE 325 MG TABLET PO SCH ×2 (09:57→20:46)
[2018-01-07] MEDS: CARVEDILOL 3.125 MG TABLET PO SCH ×2 (09:57→20:46)
[2018-01-07] MEDS: DOCUSATE SODIUM 100 MG CAPSULE PO SCH ×2 (09:57→20:46)
[2018-01-07] MEDS: ASPIRIN EC 81 MG TABLET PO SCH (09:58)
[2018-01-07] MEDS: GABAPENTIN 100 MG CAPSULE PO SCH ×3 (09:58→20:46)
[2018-01-07] MEDS: FUROSEMIDE 20 MG/2 ML VIAL IV SCH ×2 (09:58→16:42)
[2018-01-07] MEDS: PANTOPRAZOLE 40 MG TABLET PO SCH (09:58)
[2018-01-07] MEDS: ENOXAPARIN 40 MG/0.4 ML SYRINGE SUBCUT SCH (09:58)
[2018-01-07] MEDS: INSULIN REGULAR 100 UNIT/ML SUBCUT SCH ×4 (09:58→20:51)
[2018-01-07] MEDS: FLUCONAZOLE INJ 100 MG in IV BAG 1 EACH IV SCH (13:00)
[2018-01-07] MEDS: SERTRALINE 100 MG TABLET PO SCH (20:46)
[2018-01-07] MEDS: TERAZOSIN 10 MG CAPSULE PO SCH (20:46)
[2018-01-07] MEDS: guaiFENesin 200 MG/10 ML UDCUP PO PRN (20:46)
[2018-01-07] MEDS: rOPINIRole 4 MG TABLET PO SCH (20:46)
[2018-01-08] MEDS: methylPREDNISolone SOD SUC 40 MG/1 ML VIAL IV SCH ×4 (00:21→18:55)
[2018-01-08] MEDS: LINEZOLID INJ 600 MG in PREMIX 1 EACH IV SCH ×2 (00:21→13:15)
[2018-01-08] MEDS: MEROPENEM 1,000 MG in SYRINGE 1 EACH IV SCH ×3 (03:20→18:55)
[2018-01-08] MEDS: DORNASE ALFA 2.5 MG/2.5 ML VIAL RESP TX SCH ×2 (08:38→19:36)
[2018-01-08] MEDS: INSULIN REGULAR 100 UNIT/ML SUBCUT SCH ×4 (08:51→21:30)
[2018-01-08] MEDS: ENOXAPARIN 40 MG/0.4 ML SYRINGE SUBCUT SCH (08:53)
[2018-01-08] MEDS: ASPIRIN EC 81 MG TABLET PO SCH (08:53)
[2018-01-08] MEDS: ATORVASTATIN 20 MG TABLET PO SCH (08:53)
[2018-01-08] MEDS: FUROSEMIDE 20 MG/2 ML VIAL IV SCH ×2 (08:53→15:04)
[2018-01-08] MEDS: GABAPENTIN 100 MG CAPSULE PO SCH ×3 (08:54→21:28)
[2018-01-08] MEDS: BENZONATATE 100 MG CAPSULE PO SCH ×3 (08:54→21:28)
[2018-01-08] MEDS: ASCORBIC ACID 500 MG TABLET PO SCH (08:54)
[2018-01-08] MEDS: CARVEDILOL 3.125 MG TABLET PO SCH ×2 (08:54→21:30)
[2018-01-08] MEDS: POTASSIUM CHLORIDE 20 MEQ TABLET PO SCH (08:54)
[2018-01-08] MEDS: DOCUSATE SODIUM 100 MG CAPSULE PO SCH ×2 (08:54→21:28)
[2018-01-08] MEDS: CLOPIDOGREL 75 MG TABLET PO SCH (08:55)
[2018-01-08] MEDS: FERROUS SULFATE 325 MG TABLET PO SCH ×2 (08:55→21:28)
[2018-01-08] MEDS: PANTOPRAZOLE 40 MG TABLET PO SCH (08:55)
[2018-01-08] MEDS: FLUCONAZOLE INJ 100 MG in IV BAG 1 EACH IV SCH (12:13)
[2018-01-08] MEDS: guaiFENesin 200 MG/10 ML UDCUP PO PRN (21:27)
[2018-01-08] MEDS: rOPINIRole 4 MG TABLET PO SCH (21:28)
[2018-01-08] MEDS: SERTRALINE 100 MG TABLET PO SCH (21:28)
[2018-01-08] MEDS: TERAZOSIN 10 MG CAPSULE PO SCH (21:29)
[2018-01-09] MEDS: methylPREDNISolone SOD SUC 40 MG/1 ML VIAL IV SCH ×5 (00:57→23:51)
[2018-01-09] MEDS: LINEZOLID INJ 600 MG in PREMIX 1 EACH IV SCH ×3 (01:01→23:50)
[2018-01-09] MEDS: MEROPENEM 1,000 MG in SYRINGE 1 EACH IV SCH ×3 (02:26→18:01)
[2018-01-09] MEDS: DORNASE ALFA 2.5 MG/2.5 ML VIAL RESP TX SCH ×2 (08:26→19:15)
[2018-01-09] MEDS: ASCORBIC ACID 500 MG TABLET PO SCH (08:37)
[2018-01-09] MEDS: GABAPENTIN 100 MG CAPSULE PO SCH ×3 (08:37→21:43)
[2018-01-09] MEDS: BENZONATATE 100 MG CAPSULE PO SCH ×3 (08:37→21:42)
[2018-01-09] MEDS: FERROUS SULFATE 325 MG TABLET PO SCH ×2 (08:37→21:43)
[2018-01-09] MEDS: ATORVASTATIN 20 MG TABLET PO SCH (08:37)
[2018-01-09] MEDS: CLOPIDOGREL 75 MG TABLET PO SCH (08:37)
[2018-01-09] MEDS: PANTOPRAZOLE 40 MG TABLET PO SCH (08:37)
[2018-01-09] MEDS: ASPIRIN EC 81 MG TABLET PO SCH (08:38)
[2018-01-09] MEDS: DOCUSATE SODIUM 100 MG CAPSULE PO SCH ×2 (08:38→21:43)
[2018-01-09] MEDS: CARVEDILOL 3.125 MG TABLET PO SCH ×2 (08:39→21:43)
[2018-01-09] MEDS: POTASSIUM CHLORIDE 20 MEQ TABLET PO SCH (08:39)
[2018-01-09] MEDS: INSULIN REGULAR 100 UNIT/ML SUBCUT SCH ×4 (08:41→22:10)
[2018-01-09] MEDS: FUROSEMIDE 20 MG/2 ML VIAL IV SCH ×2 (08:43→15:37)
[2018-01-09] MEDS: ENOXAPARIN 40 MG/0.4 ML SYRINGE SUBCUT SCH (08:43)
[2018-01-09 11:07] LABS: Basophils % 0.1 % (0.0-0.8); Hematocrit 38.1 VOL% (42.0-52.0); Immature Granulocytes % 1.7 %; Immature Granulocytes Absolute 0.27 #; Lymphocytes # 0.3 10*3/uL (1.4-4.0); Mean Corpuscular HGB Conc 34.1 GM/DL (32-36); Mean Corpuscular Hemoglobin 28 PG (27-34); Mean Corpuscular Volume 80.7 FL (87-102); Mean Platelet Volume 10.3 FL (9.6-12.0); Monocytes # 0.4 10*3/uL (0.11-0.8); Monocytes % 2.6 % (1.7-12.7); Neutrophils # 14.9 10*3/uL (1.4-7.4); Neutrophils % 93.6 % (38.7-73.9); Platelet Count 169 T/CUMM (130-400); Red Blood Count 4.72 MC/CUMM (3.8-5.5); Red Cell Distribution Width 16.3 % (9.3-17.3); White Blood Count 15.9 T/CUMM (4-12)
[2018-01-09] MEDS: FLUCONAZOLE INJ 100 MG in IV BAG 1 EACH IV SCH (11:20)
[2018-01-09 11:35] LABS: Band Neutrophils 2 % (0-10); Calcium 8.1 MG/DL (8.5-10.1); Hypochromasia 1+; Lymphocytes 2 % (20-55); Microcytosis 1+; Osmolality,Calculated 279.5 MOS/KG (273-304); Platelet Estimate Adequate; Potassium 4.8 MMOL/L (3.5-5.1); Segmented Neutrophils 95 % (50-85); Total Cells Counted 100
[2018-01-09 12:54] LABS: Allen Test Positive; Pt O2 Delivery Device Other
[2018-01-09 12:55] LABS: ABG Base Excess 4.4 MMOL/L (-2.5-2.5); ABG HCO3 28.2 MMOL/L (20-26); ABG Oxygen Saturation 93.2 % (95-100); ABG PO2 69.7 MM HG (80-95); ABG TCO2 24.7 MMOL/L (23-27)
[2018-01-09] MEDS: guaiFENesin 200 MG/10 ML UDCUP PO PRN (21:42)
[2018-01-09] MEDS: TERAZOSIN 10 MG CAPSULE PO SCH (21:43)
[2018-01-09] MEDS: rOPINIRole 4 MG TABLET PO SCH (21:43)
[2018-01-09] MEDS: SERTRALINE 100 MG TABLET PO SCH (21:43)
[2018-01-10] MEDS: MEROPENEM 1,000 MG in SYRINGE 1 EACH IV SCH ×3 (02:32→18:06)
[2018-01-10] MEDS: methylPREDNISolone SOD SUC 40 MG/1 ML VIAL IV SCH ×3 (06:46→18:06)
[2018-01-10] MEDS: DORNASE ALFA 2.5 MG/2.5 ML VIAL RESP TX SCH ×2 (07:28→20:27)
[2018-01-10] MEDS: FERROUS SULFATE 325 MG TABLET PO SCH ×2 (08:54→21:22)
[2018-01-10] MEDS: BENZONATATE 100 MG CAPSULE PO SCH ×3 (08:54→21:22)
[2018-01-10] MEDS: CARVEDILOL 3.125 MG TABLET PO SCH ×2 (08:54→21:23)
[2018-01-10] MEDS: POTASSIUM CHLORIDE 20 MEQ TABLET PO SCH (08:54)
[2018-01-10] MEDS: GABAPENTIN 100 MG CAPSULE PO SCH ×3 (08:54→21:22)
[2018-01-10] MEDS: INSULIN REGULAR 100 UNIT/ML SUBCUT SCH ×4 (08:55→21:27)
[2018-01-10] MEDS: ASCORBIC ACID 500 MG TABLET PO SCH (08:55)
[2018-01-10] MEDS: ATORVASTATIN 20 MG TABLET PO SCH (08:55)
[2018-01-10] MEDS: PANTOPRAZOLE 40 MG TABLET PO SCH (08:55)
[2018-01-10] MEDS: DOCUSATE SODIUM 100 MG CAPSULE PO SCH ×2 (08:55→21:22)
[2018-01-10] MEDS: ENOXAPARIN 40 MG/0.4 ML SYRINGE SUBCUT SCH (08:55)
[2018-01-10] MEDS: CLOPIDOGREL 75 MG TABLET PO SCH (08:55)
[2018-01-10] MEDS: ASPIRIN EC 81 MG TABLET PO SCH (08:55)
[2018-01-10] MEDS: FUROSEMIDE 20 MG/2 ML VIAL IV SCH ×2 (08:55→17:01)
[2018-01-10 08:59] LABS: Basophils % 0.1 % (0.0-0.8); Hematocrit 39.2 VOL% (42.0-52.0); Hemoglobin 13.2 GM/DL (14.0-18.0); Immature Granulocytes % 1.5 %; Immature Granulocytes Absolute 0.23 #; Lymphocytes # 0.3 10*3/uL (1.4-4.0); Lymphocytes % 2.1 % (21.2-54.2); Mean Corpuscular HGB Conc 33.7 GM/DL (32-36); Mean Corpuscular Hemoglobin 28 PG (27-34); Mean Corpuscular Volume 82.2 FL (87-102); Mean Platelet Volume 10.7 FL (9.6-12.0); Monocytes # 0.5 10*3/uL (0.11-0.8); Monocytes % 3.3 % (1.7-12.7); Neutrophils # 14.6 10*3/uL (1.4-7.4); Platelet Count 154 T/CUMM (130-400); Red Blood Count 4.77 MC/CUMM (3.8-5.5); Red Cell Distribution Width 16.4 % (9.3-17.3); White Blood Count 15.7 T/CUMM (4-12)
[2018-01-10 09:14] LABS: Calcium 7.9 MG/DL (8.5-10.1); Osmolality,Calculated 277.4 MOS/KG (273-304); Potassium 5.2 MMOL/L (3.5-5.1)
[2018-01-10 09:50] LABS: Band Neutrophils 4 % (0-10); Lymphocytes 1 % (20-55); Segmented Neutrophils 93 % (50-85); Total Cells Counted 100
[2018-01-10 09:51] LABS: Anisocytosis Slight; Platelet Estimate Normal
[2018-01-10] MEDS: FLUCONAZOLE INJ 100 MG in IV BAG 1 EACH IV SCH (11:43)
[2018-01-10] MEDS: LINEZOLID INJ 600 MG in PREMIX 1 EACH IV SCH (13:30)
[2018-01-10] MEDS: rOPINIRole 4 MG TABLET PO SCH (21:22)
[2018-01-10] MEDS: SERTRALINE 100 MG TABLET PO SCH (21:22)
[2018-01-10] MEDS: TERAZOSIN 10 MG CAPSULE PO SCH (21:23)
[2018-01-11] MEDS: methylPREDNISolone SOD SUC 40 MG/1 ML VIAL IV SCH ×4 (00:30→17:20)
[2018-01-11] MEDS: LINEZOLID INJ 600 MG in PREMIX 1 EACH IV SCH ×2 (00:32→13:39)
[2018-01-11] MEDS: MEROPENEM 1,000 MG in SYRINGE 1 EACH IV SCH ×2 (02:34→11:25)
[2018-01-11 05:23] LABS: Basophils % 0.2 % (0.0-0.8); Hematocrit 38.3 VOL% (42.0-52.0); Hemoglobin 12.6 GM/DL (14.0-18.0); Immature Granulocytes % 2.7 %; Immature Granulocytes Absolute 0.44 #; Lymphocytes # 0.4 10*3/uL (1.4-4.0); Lymphocytes % 2.1 % (21.2-54.2); Mean Corpuscular HGB Conc 32.9 GM/DL (32-36); Mean Corpuscular Hemoglobin 27 PG (27-34); Mean Corpuscular Volume 81.7 FL (87-102); Mean Platelet Volume 10.3 FL (9.6-12.0); Monocytes # 0.5 10*3/uL (0.11-0.8); Monocytes % 3.1 % (1.7-12.7); Neutrophils # 15.2 10*3/uL (1.4-7.4); Neutrophils % 91.9 % (38.7-73.9); Platelet Count 131 T/CUMM (130-400); Red Blood Count 4.69 MC/CUMM (3.8-5.5); Red Cell Distribution Width 16.3 % (9.3-17.3); White Blood Count 16.6 T/CUMM (4-12)
[2018-01-11 06:04] LABS: Calcium 8.3 MG/DL (8.5-10.1); Osmolality,Calculated 273.5 MOS/KG (273-304); Potassium 4.9 MMOL/L (3.5-5.1)
[2018-01-11 06:12] LABS: Band Neutrophils 1 % (0-10); Lymphocytes 4 % (20-55); Platelet Estimate Normal; Segmented Neutrophils 94 % (50-85); Total Cells Counted 100
[2018-01-11] MEDS ORDERED: diphenhydrAMINE CAP 25 MG CAPSULE PO ONE (06:47)
[2018-01-11] MEDS ORDERED: DIAZEPAM 5 MG TABLET PO ONE (06:47)
[2018-01-11] MEDS: DORNASE ALFA 2.5 MG/2.5 ML VIAL RESP TX SCH ×2 (07:15→19:42)
[2018-01-11] MEDS: ASPIRIN EC 81 MG TABLET PO SCH ×2 (07:21→08:25)
[2018-01-11] MEDS: CARVEDILOL 3.125 MG TABLET PO SCH ×3 (07:21→20:58)
[2018-01-11] MEDS: CLOPIDOGREL 75 MG TABLET PO SCH ×2 (07:21→08:26)
[2018-01-11] MEDS: INSULIN REGULAR 100 UNIT/ML SUBCUT SCH ×4 (07:45→21:13)
[2018-01-11] MEDS ORDERED: HEPARIN/NACL 0.9% 2 UNITS/ML 500 ML IV ONE (08:00)
[2018-01-11] MEDS ORDERED: MIDAZOLAM 2 MG/2 ML VIAL ONE (08:12)
[2018-01-11] MEDS ORDERED: fentaNYL 100 MCG/2 ML VIAL ONE (08:12)
[2018-01-11] MEDS ORDERED: ADENOSINE 90 MG/30 ML VIAL IV ONE ×2 (08:33→08:34)
[2018-01-11] MEDS ORDERED: AMINOPHYLLINE 500 MG/20 ML VIAL IV ONE (08:56)
[2018-01-11 09:54] LABS: ABG Base Excess 4.8 MMOL/L (-2.5-2.5); ABG HCO3 28.2 MMOL/L (20-26); ABG Oxygen Saturation 77.8 % (95-100); ABG PCO2 39.1 MM HG (35-48); ABG PH 7.472 (7.35-7.45); ABG PO2 44.5 MM HG (80-95); Glucose Heart Surgery 170 MG/DL (74-106); Hematocrit Heart Surgery 40.2 PERCENT (42-52); Hemoglobin Heart Surgery 13.1 G/DL (14.0-18.0); Potassium Heart/CVR 4.7 MMOL/L (3.5-5.1)
[2018-01-11] MEDS: FERROUS SULFATE 325 MG TABLET PO SCH ×2 (11:07→20:58)
[2018-01-11] MEDS: DOCUSATE SODIUM 100 MG CAPSULE PO SCH ×2 (11:07→21:14)
[2018-01-11] MEDS: PANTOPRAZOLE 40 MG TABLET PO SCH (11:08)
[2018-01-11] MEDS: ATORVASTATIN 20 MG TABLET PO SCH (11:08)
[2018-01-11] MEDS: ASCORBIC ACID 500 MG TABLET PO SCH (11:08)
[2018-01-11] MEDS: BENZONATATE 100 MG CAPSULE PO SCH ×3 (11:08→20:58)
[2018-01-11] MEDS: GABAPENTIN 100 MG CAPSULE PO SCH ×3 (11:08→20:58)
[2018-01-11] MEDS: POTASSIUM CHLORIDE 20 MEQ TABLET PO SCH (11:08)
[2018-01-11] MEDS: FUROSEMIDE 20 MG/2 ML VIAL IV SCH ×2 (11:22→16:05)
[2018-01-11] MEDS: FLUCONAZOLE INJ 100 MG in IV BAG 1 EACH IV SCH (11:28)
[2018-01-11] MEDS: ENOXAPARIN 40 MG/0.4 ML SYRINGE SUBCUT SCH (13:38)
[2018-01-11] MEDS: hydrALAZINE 10 MG TABLET PO SCH ×2 (16:05→21:05)
[2018-01-11] MEDS: SODIUM CHLORIDE 0.9% IV SCH (20:56)
[2018-01-11] MEDS: RIFAMPIN IV SCH (20:56)
[2018-01-11] MEDS: SERTRALINE 100 MG TABLET PO SCH (20:58)
[2018-01-11] MEDS: rOPINIRole 4 MG TABLET PO SCH (20:58)
[2018-01-11] MEDS: TERAZOSIN 10 MG CAPSULE PO SCH (20:59)
[2018-01-11] MEDS: VANCOMYCIN INJ 1,750 MG in SODIUM CHLORIDE 0.9% 500 ML IV SCH (21:56)
[2018-01-12] MEDS: methylPREDNISolone SOD SUC 40 MG/1 ML VIAL IV SCH ×4 (00:40→17:45)
[2018-01-12] MEDS: SODIUM CHLORIDE 0.9% IV SCH ×3 (05:00→20:40)
[2018-01-12] MEDS: RIFAMPIN IV SCH ×3 (05:00→20:40)
[2018-01-12 07:27] LABS: Basophils % 0.2 % (0.0-0.8); Hematocrit 38.3 VOL% (42.0-52.0); Hemoglobin 13.1 GM/DL (14.0-18.0); Immature Granulocytes % 2.4 %; Immature Granulocytes Absolute 0.43 #; Lymphocytes # 0.3 10*3/uL (1.4-4.0); Lymphocytes % 1.6 % (21.2-54.2); Mean Corpuscular HGB Conc 34.2 GM/DL (32-36); Mean Corpuscular Hemoglobin 28 PG (27-34); Mean Corpuscular Volume 81.1 FL (87-102); Mean Platelet Volume 10.7 FL (9.6-12.0); Monocytes # 0.8 10*3/uL (0.11-0.8); Monocytes % 4.5 % (1.7-12.7); Neutrophils # 16.4 10*3/uL (1.4-7.4); Neutrophils % 91.3 % (38.7-73.9); Platelet Count 127 T/CUMM (130-400); Red Blood Count 4.72 MC/CUMM (3.8-5.5); Red Cell Distribution Width 17.2 % (9.3-17.3); White Blood Count 17.9 T/CUMM (4-12)
[2018-01-12] MEDS: DORNASE ALFA 2.5 MG/2.5 ML VIAL RESP TX SCH ×2 (07:35→19:56)
[2018-01-12 07:54] LABS: Calcium 7.7 MG/DL (8.5-10.1); Osmolality,Calculated 282.2 MOS/KG (273-304); Potassium 4.8 MMOL/L (3.5-5.1)
[2018-01-12 07:58] LABS: Hypochromasia 1+; Lymphocytes 2 % (20-55); Ovalocytes Slight; Platelet Estimate Decreased; Segmented Neutrophils 97 % (50-85); Total Cells Counted 100
[2018-01-12] MEDS: INSULIN REGULAR 100 UNIT/ML SUBCUT SCH ×4 (08:24→21:40)
[2018-01-12] MEDS: ENOXAPARIN 40 MG/0.4 ML SYRINGE SUBCUT SCH (08:24)
[2018-01-12] MEDS: FUROSEMIDE 20 MG/2 ML VIAL IV SCH ×2 (08:24→15:55)
[2018-01-12] MEDS: ASCORBIC ACID 500 MG TABLET PO SCH (08:25)
[2018-01-12] MEDS: CARVEDILOL 3.125 MG TABLET PO SCH ×2 (08:25→20:41)
[2018-01-12] MEDS: PANTOPRAZOLE 40 MG TABLET PO SCH (08:25)
[2018-01-12] MEDS: DOCUSATE SODIUM 100 MG CAPSULE PO SCH ×2 (08:25→20:41)
[2018-01-12] MEDS: GABAPENTIN 100 MG CAPSULE PO SCH ×3 (08:25→20:41)
[2018-01-12] MEDS: ATORVASTATIN 20 MG TABLET PO SCH (08:25)
[2018-01-12] MEDS: CLOPIDOGREL 75 MG TABLET PO SCH (08:25)
[2018-01-12] MEDS: BENZONATATE 100 MG CAPSULE PO SCH ×3 (08:25→20:41)
[2018-01-12] MEDS: FERROUS SULFATE 325 MG TABLET PO SCH ×2 (08:26→20:41)
[2018-01-12] MEDS: hydrALAZINE 10 MG TABLET PO SCH ×3 (08:26→20:41)
[2018-01-12] MEDS: VANCOMYCIN INJ 1,750 MG in SODIUM CHLORIDE 0.9% 500 ML IV SCH ×2 (08:26→21:45)
[2018-01-12] MEDS: POTASSIUM CHLORIDE 20 MEQ TABLET PO SCH (08:26)
[2018-01-12] MEDS: ASPIRIN EC 81 MG TABLET PO SCH (08:26)
[2018-01-12] MEDS: CLORAZEPATE 3.75 MG TABLET PO PRN ×2 (13:03→20:41)
[2018-01-12] MEDS ORDERED: FUROSEMIDE 40 MG/4 ML VIAL IV ONE (17:27)
[2018-01-12] MEDS ORDERED: KETOROLAC 15 MG/1 ML VIAL IV ONE (17:41)
[2018-01-12 18:02] LABS: ABG Base Excess 2.9 MMOL/L (-2.5-2.5); ABG HCO3 26.7 MMOL/L (20-26); ABG Oxygen Saturation 86.6 % (95-100); ABG PCO2 44.5 MM HG (35-48); ABG PH 7.408 (7.35-7.45); ABG PO2 57.4 MM HG (80-95); ABG TCO2 24.4 MMOL/L (23-27)
[2018-01-12] MEDS: rOPINIRole 4 MG TABLET PO SCH (20:40)
[2018-01-12] MEDS: SERTRALINE 100 MG TABLET PO SCH (20:41)
[2018-01-12] MEDS: TERAZOSIN 10 MG CAPSULE PO SCH (20:41)
[2018-01-13] MEDS: methylPREDNISolone SOD SUC 40 MG/1 ML VIAL IV SCH ×2 (00:45→06:10)
[2018-01-13] MEDS: RIFAMPIN IV SCH (05:00)
[2018-01-13] MEDS: SODIUM CHLORIDE 0.9% IV SCH (05:00)
[2018-01-13] MEDS ORDERED: MORPHINE 4 MG/1 ML VIAL IV PRN (06:05)
[2018-01-13] MEDS: DORNASE ALFA 2.5 MG/2.5 ML VIAL RESP TX SCH (07:44)
[2018-01-13 07:54] LABS: Basophils # 0.1 10*3/uL (0.0-0.2); Basophils % 0.2 % (0.0-0.8); Hematocrit 37.3 VOL% (42.0-52.0); Hemoglobin 12.7 GM/DL (14.0-18.0); Immature Granulocytes % 3.6 %; Immature Granulocytes Absolute 0.75 #; Lymphocytes # 0.3 10*3/uL (1.4-4.0); Lymphocytes % 1.5 % (21.2-54.2); Mean Corpuscular Hemoglobin 28 PG (27-34); Mean Platelet Volume 11.1 FL (9.6-12.0); Monocytes # 1.2 10*3/uL (0.11-0.8); Monocytes % 5.8 % (1.7-12.7); Neutrophils # 18.3 10*3/uL (1.4-7.4); Neutrophils % 88.9 % (38.7-73.9); Platelet Count 117 T/CUMM (130-400); Red Blood Count 4.55 MC/CUMM (3.8-5.5); Red Cell Distribution Width 17.6 % (9.3-17.3); White Blood Count 20.7 T/CUMM (4-12)
[2018-01-13] MEDS: CLORAZEPATE 3.75 MG TABLET PO PRN (07:55)
[2018-01-13 08:05] LABS: Calcium 7.9 MG/DL (8.5-10.1); Osmolality,Calculated 295.4 MOS/KG (273-304); Potassium 5.2 MMOL/L (3.5-5.1)
[2018-01-13 08:10] VITALS: BP 132/70
[2018-01-13] MEDS: POTASSIUM CHLORIDE 20 MEQ TABLET PO SCH (08:11)
[2018-01-13] MEDS: INSULIN REGULAR 100 UNIT/ML SUBCUT SCH (09:06)
[2018-01-13] MEDS: ENOXAPARIN 40 MG/0.4 ML SYRINGE SUBCUT SCH (09:07)
[2018-01-13] MEDS: GABAPENTIN 100 MG CAPSULE PO SCH (09:07)
[2018-01-13] MEDS: FUROSEMIDE 20 MG/2 ML VIAL IV SCH (09:08)
[2018-01-13] MEDS: BENZONATATE 100 MG CAPSULE PO SCH (09:08)
[2018-01-13] MEDS: ASCORBIC ACID 500 MG TABLET PO SCH (09:09)
[2018-01-13] MEDS: DOCUSATE SODIUM 100 MG CAPSULE PO SCH (09:09)
[2018-01-13] MEDS: PANTOPRAZOLE 40 MG TABLET PO SCH (09:10)
[2018-01-13] MEDS: hydrALAZINE 10 MG TABLET PO SCH (09:10)
[2018-01-13] MEDS: CLOPIDOGREL 75 MG TABLET PO SCH (09:10)
[2018-01-13] MEDS: ATORVASTATIN 20 MG TABLET PO SCH (09:10)
[2018-01-13] MEDS: CARVEDILOL 3.125 MG TABLET PO SCH (09:10)
[2018-01-13] MEDS: ASPIRIN EC 81 MG TABLET PO SCH (09:10)
[2018-01-13] MEDS: FERROUS SULFATE 325 MG TABLET PO SCH (09:10)
[2018-01-13] MEDS: VANCOMYCIN INJ 1,750 MG in SODIUM CHLORIDE 0.9% 500 ML IV SCH (09:11)
[2018-01-13] MEDS ORDERED: methylPREDNISolone SOD SUC 125 MG/2 ML VIAL IV ONE (10:16)
[2018-01-13] MEDS ORDERED: FUROSEMIDE 40 MG/4 ML VIAL IV ONE (10:17)
[2018-01-13 10:33] LABS: ABG Base Excess 3.1 MMOL/L (-2.5-2.5); ABG HCO3 26.9 MMOL/L (20-26); ABG Oxygen Saturation 89.3 % (95-100); ABG PCO2 43.5 MM HG (35-48); ABG PH 7.418 (7.35-7.45); ABG PO2 62.3 MM HG (80-95); ABG TCO2 24.5 MMOL/L (23-27)
[2018-01-13] MEDS ORDERED: PHENYLEPHRINE DRIP 40 MG/250 ML PREMIX IV ONE (11:15)
[2018-01-13] MEDS ORDERED: EPINEPHrine 1 MG/10 ML SYRINGE ONE ×3 (11:17→11:36)
[2018-01-13 11:23] LABS: Segmented Neutrophils 98 % (50-85); Total Cells Counted 100
[2018-01-13 11:24] LABS: Hypochromasia 1+; Platelet Estimate Decreased; Target Cells Slight
[2018-01-13] MEDS ORDERED: CALCIUM CHLORIDE 1,000 MG/10 ML SYRINGE IV ONE ×2 (11:37)
[2018-01-13] MEDS ORDERED: SUCCINYLCHOLINE 200 MG/10 ML VIAL ONE (11:55)
[2018-01-13] MEDS ORDERED: PROPOFOL 200 MG/20 ML VIAL IV ONE (11:55)
[2018-01-13] MEDS ORDERED: ETOMIDATE 40 MG/20 ML VIAL IV ONE (11:55)
[2018-01-13] MEDS ORDERED: PHENYLEPHRINE 10 MG/1 ML VIAL IV ONE (11:57)
== END 2018-01-13 11:43 | disposition expired | DRG 871 ==
LOC: EDUNIT# → EDBD → N.ED 20:42 → N.EDINP 23:09 → SUATTDRO 23:09 → N.TELEN 12-29 00:17 → N.CC 01-13 10:52
PROVIDERS: ADMIT Internal Medicine; ATTEND Internal Medicine Geriatric Medicine